=== PATIENT | female | born 1945 | race Caucasian/White ===

== ENCOUNTER 2016-06-08 17:44 | Observation (INO) ==
--- NOTE | 2016-06-08 17:57 | Emergency Department Note ---
Disposition Clinical Impression: Chest pain, Diabetes mellitus Disposition: Admitted As Inpatient Condition: Fair Referrals: NO,PCP [Primary Care Provider] - Forms: ED Satisfaction Letter Time of Disposition: 19:39 ([facility]) Chest Pain HPI - General Chief Complaint: ED Chest Pain Stated Complaint: chest pain Time Seen by Provider: 06/08/16 17:55 Source: patient, EMS Mode of arrival: EMS Limitations: no limitations Vital Signs Reviewed: Yes Nursing Notes Reviewed: Yes - History of Present Illness HPI Narrative: 71-year-old female intermittent chest pressure was given aspirin nitroglycerin with some mild relief denies though any blurred vision double vision is any nausea vomiting states that the pain was relieved with nitroglycerin denies any cough hemoptysis or sputum production she denies any vaginal discharge she has burning urgency fixation eyes anything that makes it better anything makes it worse is retired has no energy Pt complaint: chest pain Onset (ago): hour(s) (6) Duration: constant Onset: during rest Pain Location: substernal Severity: mild Severity scale (1-10): 1 Quality: tightness, other (Patient states this is not similar to when she had a prior [place] she said that was a pain this was a pressure) Pain Radiation: none Improves with: nitroglycerin (by squad) Worsens with: exertion Associated symptoms: Denies: nausea, vomiting, diaphoresis, dyspnea, sense of impending doom, syncope, palpitations, fever, cough, leg swelling Treatments prior to arrival chest pain: none - Related Data Home Medications Medication Instructions Recorded Confirmed Losartan [Cozaar] 100 mg PO DAILY 12/20/14 10/06/15 Diltiazem HCl [Diltiazem ER] 240 mg PO DAILY 05/22/15 10/06/15 Ergocalciferol (VITAMIN D2) 50,000 unit PO QWEEK 05/22/15 10/06/15 [Vitamin D2 (50,000 UNIT)] Exenatide [Byetta] 5 mcg SQ DAILY 05/22/15 10/06/15 Isosorbide MONOnitrate (24 HR) 60 mg PO DAILY 05/22/15 10/06/15 [Imdur] Nitroglycerin [Nitrostat] 0.4 mg SL PRN PRN 05/22/15 10/06/15 Warfarin [Coumadin] 3 mg PO TUSA 05/22/15 10/06/15 Ascorbic Acid [Vitamin C] 1,000 mg PO DAILY 08/18/15 10/06/15 Carvedilol [Coreg] 25 mg PO BID 08/18/15 10/06/15 Furosemide [Lasix] 40 mg PO DAILY 08/18/15 10/06/15 Gluc Alejo/Chondro Alejo A/Vit C/Mn 1 each PO DAILY 08/18/15 10/06/15 [Glucosamine 1,500 Complex Cp] Metformin HCl [Glucophage] 1,000 mg PO BID 08/18/15 10/06/15 Omeprazole Magnesium [Prilosec Otc] 20 mg PO DAILY 08/18/15 10/06/15 Simvastatin [Zocor] 10 mg PO HS 08/18/15 10/06/15 Previous Rx's Medication Instructions Recorded Aspirin 81 mg PO DAILY #30 tab.chew 12/29/14 Glimepiride [Amaryl] 1 mg PO DAILY #30 tablet 05/24/15 Lactobacillus [Culturelle] 1 each PO BID #6 cap.sprink 05/24/15 Cyanocobalamin (Vitamin B-12) 2,500 mcg SL DAILY #90 tab.subl 08/06/15 [Vitamin B-12] Folic Acid 1 mg PO DAILY #90 tablet 08/06/15 Furosemide [Lasix] 20 mg PO DAILY #30 tablet 08/06/15 Allergies Allergy/AdvReac Type Severity Reaction Status Date / Time No Known Allergies Allergy Verified 08/18/15 20:29 All systems ED: reviewed and negative except as stated. Constitutional: Denies: fever, chills, weakness Eyes: Denies: vision change ENT ED: Denies: ear pain, throat pain Cardiovascular: Reports: chest pain, palpitations Respiratory: Denies: cough, dyspnea, wheezes Gastrointestinal: Denies: abdominal pain, nausea, vomiting Genitourinary: Denies: urgency, dysuria, frequency Musculoskeletal: Denies: back pain, neck pain Integumentary: Denies: rash, abrasion Neurological: Denies: headache Psychiatric: Denies: anxiety, depression Endocrine: Denies: fatigue Hematological/Lymphatic: Denies: easy bleeding Allergic/Immunologic: Denies: facial swelling Chest Pain PMH - Past Medical History Medical history: Reports: atrial fibrillation, cardiomyopathy, CHF, coronary artery disease, diabetes, hyperlipidemia, hypertension, renal disease Surgical history: Reports: no surgical history, other Psychiatric history: Reports: no psych history SECTION HOUSEKEEPER history: Reports: no SECTION HOUSEKEEPER history - Social History Smoking Status: Never smoker Alcohol use: Reports: none Drug use: Reports: none Physical Exam - General Limitations: no limitations General appearance: alert, in no apparent distress, other (Older than stated appearance) - Head Head exam: atraumatic, normocephalic, normal inspection - Eye Eye exam: Present: normal appearance, PERRL, EOMI - ENT ENT exam: normal exam, normal oropharynx, mucous membranes moist, TM's normal bilaterally, normal external ear exam - Neck Neck exam: Present: normal inspection, full ROM, trachea midline - Chest Chest inspection: Present: normal inspection, symmetric chest wall rise - Respiratory Respiratory exam: Present: normal lung sounds bilaterally - Cardiovascular Cardiovascular exam: Present: regular rate, normal rhythm, normal heart sounds - Abdominal Exam Abdominal exam: Present: soft, Non-Tender, normal bowel sounds - Extremities Exam Extremities exam: Present: normal inspection, full ROM, normal capillary refill. Absent: pedal edema - Back Exam Back exam: Present: normal inspection, full ROM. Absent: muscle spasm - Neurological Exam Neurological exam: Present: alert, oriented X3, CN II-XII intact - Psychiatric Psychiatric exam: Present: normal affect, normal mood - Skin Skin exam: Present: warm, dry, intact, normal color Course Course Narrative: She was seen and examined patient is currently asymptomatic this time of any chest pain or pressure or discomfort as a result recommend observation and initial enzymes are negative dr mark caal Vital Signs Temperature 98.0 F 06/08/16 17:46 Pulse Rate 95 06/08/16 17:46 Respiratory Rate 18 06/08/16 17:46 Blood Pressure 140/70 06/08/16 17:46 O2 Sat by Pulse Oximetry 96 06/08/16 17:46 Temperature 98.0 F 06/08/16 17:52 Pulse Rate 99 06/08/16 18:55 Respiratory Rate 18 06/08/16 18:55 Blood Pressure 128/68 06/08/16 18:55 O2 Sat by Pulse Oximetry 97 06/08/16 18:55 Oxygen Delivery Oxygen Delivery Nasal Cannula Chest Pain - Differential Diagnosis Likely: chest pain - Medical Records Medical records reviewed: Yes I reviewed the patient's medical records. - Lab Data Lab results reviewed: Yes I reviewed the patient's lab results. Result diagrams: 06/08/16 18:10 06/08/16 18:10 Lab Results 06/08/16 06/08/16 06/08/16 Range/Units 18:10 18:10 18:10 WBC 4.3 (4.3-11.1) K/mcL RBC 3.63 L (3.82-4.97) M/mcL Hgb 10.2 L (11.5-15.4) g/dL Hct 32.2 L (35.3-44.9) % MCV 88.7 (83.0-100.0) fL MCH 28.1 (28.0-33.3) pg MCHC 31.7 (31.6-35.5) g/dL RDW 16.2 H (11.5-14.5) % Plt Count 130 L (140-400) K/mcL MPV 11.0 (9.4-12.4) fL Immature Gran % 0.5 (0-4) % Seg Neutrophils % 72.9 % Lymphocytes % 16.8 % Monocytes % 8.2 % Eosinophils % 0.9 % Basophils % 0.7 % Neutrophils # 3.1 (1.6-8.9) K/mcL Lymphocytes # 0.7 (0.6-4.6) K/mcL Monocytes # 0.4 (0.0-1.3) K/mcL Eosinophils # 0.0 (0.0-0.6) K/mcL Basophils # 0.0 (0.0-0.2) K/mcL PT 29.1 H (9.4-12.1) Seconds INR 2.6 APTT 33.9 (26.0-36.0) Seconds Sodium 142 (136-145) mEq/L Potassium 4.8 H (3.5-4.5) mEq/L Chloride 110 H (98-109) mEq/L Carbon Dioxide 22 (19-29) mEq/L BUN 31 H (7-20) mg/dL Creatinine 1.38 H (0.57-1.11) mg/dL Est GFR ( Amer) 46 L (> 60) Est GFR (Non-Af Amer) 38 L (> 60) BUN/Creatinine Ratio 22 (6-26) Glucose 170 H (70-99) mg/dL Calculated Osmolality 305 H (280-300) Calcium 9.3 (8.6-10.8) mg/dL Troponin I (0-0.03) ng/mL B-Natriuretic Peptide (0-100) pg/mL 06/08/16 06/08/16 Range/Units 18:10 18:10 WBC (4.3-11.1) K/mcL RBC (3.82-4.97) M/mcL Hgb (11.5-15.4) g/dL Hct (35.3-44.9) % MCV (83.0-100.0) fL MCH (28.0-33.3) pg MCHC (31.6-35.5) g/dL RDW (11.5-14.5) % Plt Count (140-400) K/mcL MPV (9.4-12.4) fL Immature Gran % (0-4) % Seg Neutrophils % % Lymphocytes % % Monocytes % % Eosinophils % % Basophils % % Neutrophils # (1.6-8.9) K/mcL Lymphocytes # (0.6-4.6) K/mcL Monocytes # (0.0-1.3) K/mcL Eosinophils # (0.0-0.6) K/mcL Basophils # (0.0-0.2) K/mcL PT (9.4-12.1) Seconds INR APTT (26.0-36.0) Seconds Sodium (136-145) mEq/L Potassium (3.5-4.5) mEq/L Chloride (98-109) mEq/L Carbon Dioxide (19-29) mEq/L BUN (7-20) mg/dL Creatinine (0.57-1.11) mg/dL Est GFR ( Amer) (> 60) Est GFR (Non-Af Amer) (> 60) BUN/Creatinine Ratio (6-26) Glucose (70-99) mg/dL Calculated Osmolality (280-300) Calcium (8.6-10.8) mg/dL Troponin I 0.02 (0-0.03) ng/mL B-Natriuretic Peptide 628 H (0-100) pg/mL - Radiology Data Radiology results reviewed: Yes I reviewed the patient's radiology results. ITS Impressions Chest/Abdomen X-ray 06/08/16 17:56 IMPRESSION: No acute abnormality in the chest. No evidence of bowel obstruction or free intraperitoneal air. D/ / 06/08/2016 18:55:37 Tone Castañeda MD / shira Interpreting Provider: Tone Castañeda MD - EKG Data EKG attestation: Yes I reviewed and interpreted this EKG. EKG results narrative: Atrial fibrillation with left anterior fascicular block rate 91 QRS 119 QT 372 axis -56 Heart Score - Score History: Moderately Suspicious EKG: Non Specific repolarisation Disturbance Age: Greater than 65 Risk Factors: 1-2 risk factors Troponin: Less than normal limit HEART Score Total: 5 Critical Care Time Critical Care Time: No
[2016-06-08 18:15] LABS: Basophils % 0.7 %; Eosinophils % 0.9 %; Hematocrit 32.2 % (35.3-44.9); Hemoglobin 10.2 g/dL (11.5-15.4); Immature Granulocytes % 0.5 % (0-4); Lymphocytes # 0.7 K/mcL (0.6-4.6); Lymphocytes % 16.8 %; Mean Corpuscular HGB Conc 31.7 g/dL (31.6-35.5); Mean Corpuscular Hemoglobin 28.1 pg (28.0-33.3); Mean Corpuscular Volume 88.7 fL (83.0-100.0); Monocytes # 0.4 K/mcL (0.0-1.3); Monocytes % 8.2 %; Neutrophils # 3.1 K/mcL (1.6-8.9); Platelet Count 130 K/mcL (140-400); Red Blood Count 3.63 M/mcL (3.82-4.97); Red Cell Distribution Width 16.2 % (11.5-14.5); Segmented Neutrophils % 72.9 %
[2016-06-08 18:22] LABS: INR 2.6; Prothrombin Time 29.1 Seconds (9.4-12.1)
[2016-06-08 18:25] LABS: Activated Partial Thrombo Time 33.9 Seconds (26.0-36.0)
[2016-06-08 18:32] LABS: Calcium 9.3 mg/dL (8.6-10.8); Potassium 4.8 mEq/L (3.5-4.5)
[2016-06-08] MEDS ORDERED: D5% in Water 1,000 ML IV PRN (20:11)
[2016-06-08] MEDS ORDERED: Nitroglycerin 0.4 MG TAB.SUBL SL SCH (20:11)
[2016-06-08] MEDS ORDERED: Dextrose Gel 15 GM PO PRN ×2 (20:11)
[2016-06-08] MEDS ORDERED: Ondansetron 4 MG/2 ML VIAL IVP PRN (20:11)
[2016-06-08] MEDS ORDERED: Naloxone 0.4 MG/ML INJ IVP PRN (20:11)
[2016-06-08] MEDS ORDERED: *HR* Dextrose 50 % in Water (Syg) 50 ML SYRINGE IVP PRN (20:11)
[2016-06-08] MEDS ORDERED: *HR* Metformin 500 MG TABLET PO SCH (21:00)
[2016-06-08] MEDS: Lactobacillus 1 EACH CAP.SPRINK PO SCH (22:54)
[2016-06-08] MEDS ORDERED: Nitroglycerin 0.4 MG TAB.SUBL SL PRN (22:57)
[2016-06-08] MEDS ORDERED: *HR* Warfarin 1 MG TABLET PO ONE (23:42)
[2016-06-08] MEDS ORDERED: Furosemide 40 MG TABLET PO PRN (23:49)
[2016-06-08] MEDS ORDERED: Furosemide 20 MG TABLET PO PRN (23:49)
[2016-06-09] MEDS ORDERED: Famotidine 20 MG/2 ML VIAL IVP SCH (06:00)
[2016-06-09 06:31] LABS: Basophils % 0.6 %; Eosinophils # 0.1 K/mcL (0.0-0.6); Hematocrit 30.9 % (35.3-44.9); Hemoglobin 9.6 g/dL (11.5-15.4); Immature Granulocytes % 0.3 % (0-4); Lymphocytes % 26.9 %; Mean Corpuscular HGB Conc 31.1 g/dL (31.6-35.5); Mean Corpuscular Hemoglobin 27.9 pg (28.0-33.3); Mean Corpuscular Volume 89.8 fL (83.0-100.0); Mean Platelet Volume 10.5 fL (9.4-12.4); Monocytes # 0.4 K/mcL (0.0-1.3); Monocytes % 11.6 %; Neutrophils # 2.1 K/mcL (1.6-8.9); Platelet Count 126 K/mcL (140-400); Red Blood Count 3.44 M/mcL (3.82-4.97); Red Cell Distribution Width 16.4 % (11.5-14.5); Segmented Neutrophils % 57.6 %
[2016-06-09 06:49] LABS: INR 2.7; Prothrombin Time 30.5 Seconds (9.4-12.1)
[2016-06-09 06:52] LABS: Activated Partial Thrombo Time 33.8 Seconds (26.0-36.0)
[2016-06-09 07:14] LABS: Potassium 4.7 mEq/L (3.5-4.5)
[2016-06-09] MEDS ORDERED: *HR* Metformin 500 MG TABLET PO SCH ×2 (08:00)
[2016-06-09] MEDS ORDERED: Cholecalciferol (D-3) 1,000 UNIT TABLET PO SCH (09:00)
[2016-06-09] MEDS ORDERED: Ascorbic Acid 500 MG TABLET PO SCH ×2 (09:00→15:59)
[2016-06-09] MEDS ORDERED: Isosorbide MONOnitrate (24 HR) 60 MG TAB.ER.24H PO SCH ×2 (09:00→16:00)
[2016-06-09] MEDS ORDERED: Furosemide 20 MG TABLET PO SCH (09:00)
[2016-06-09] MEDS ORDERED: Furosemide 40 MG TABLET PO SCH (09:00)
[2016-06-09] MEDS ORDERED: Cyanocobalamin (B-12) 1,000 MCG TABLET PO SCH ×2 (09:00→16:00)
[2016-06-09] MEDS: Insulin LISPRO 300 UNITS/3 ML VIAL SQ SCH ×3 (09:52→17:34)
[2016-06-09] MEDS: Lactobacillus 1 EACH CAP.SPRINK PO SCH ×2 (09:59→21:05)
[2016-06-09] MEDS: Diltiazem CD (24hr) 240 MG CAPSULE PO SCH (09:59)
[2016-06-09] MEDS: Folic Acid 1 MG TABLET PO SCH (09:59)
[2016-06-09] MEDS: Aspirin 81 MG TAB.CHEW PO SCH (09:59)
[2016-06-09] MEDS: *HR* Glimepiride 2 MG TABLET PO SCH (10:00)
[2016-06-09] MEDS: CHONDRO SU A PO SCH (10:01)
[2016-06-09] MEDS: (Exenatide [Byetta] 5 MCG) SQ SCH (10:01)
[2016-06-09] MEDS: GLUC SU PO SCH (10:01)
[2016-06-09] MEDS: [UNRECOGNIZED DRUG - OTHER] PO SCH (10:01)
[2016-06-09] MEDS: VIT C PO SCH (10:01)
--- NOTE | 2016-06-09 15:42 | Internal Med History&Physical ---
Date of Encounter: 06/09/16 Time of Encounter: 15:15 Assessment and Plan (1) Chest pain Current visit: Yes Status: Acute Repeat cardiac enzymes have been ordered. I will increase her Imdur dose Qualifiers: Chest pain type: unspecified Qualified Code(s): R07.9 - Chest pain, unspecified (2) Diabetes mellitus Current visit: Yes Status: Chronic We will check hemoglobin A1c in a.m. Continue Amaryl but hold metformin because of impaired renal function. We will do Accu-Cheks with SSI. Qualifiers: Diabetes mellitus type: type 2 Diabetes mellitus complication status: with kidney complications Diabetes mellitus complication detail: with chronic kidney disease Diabetes mellitus correction insulin use: with predatory animal exterminator use Chronic kidney disease stage: stage 3 (moderate) Qualified Code(s): E11.22 - Type 2 diabetes mellitus with diabetic chronic kidney disease; N18.3 - Chronic kidney disease, stage 3 (moderate); Z79.4 - bed bug exterminator (current) use of insulin (3) CHF (congestive heart failure) Current visit: No Status: Acute Continue Coreg, Lasix, Cozaar and Imdur Qualifiers: Congestive heart failure type: systolic Congestive heart failure chronicity : chronic Qualified Code(s): I50.22 - Chronic systolic (congestive) heart failure (4) CKD (chronic kidney disease), stage III Current visit: No Status: Chronic Will monitor renal indices. (5) Hypertension Current visit: No Status: Chronic Continue Coreg, Cozaar, and Lasix Qualifiers: Hypertension type: essential hypertension Qualified Code(s): I10 - Essential (primary) hypertension Internal Medicine - H&P: HPI Chief complaint: Chest pressure Admitted From: Home Plans for Post Hospital Care: Home History of present illness: Ms. Beebe is a 71 year old female who came to the emergency room stating she had worsening discomfort in her chest that she describes as a "pressure sensation". She states it began while at leisure earlier the day of admission. She has had increasing dyspnea on exertion the past month. She did not take any Nitrostat or other additional medication at home. She called the squad and was brought to emergency room. She was given aspirin 81 mg and Nitrostat by [facility] personnel. She was evaluated in emergency room and admitted to [facility] floor for ongoing care needs. She states she feels slightly improved at the present time but still has some pressure sensation in her chest. Her cardiovascular history is significant for hypertension. She has known ASHD status post [place] 1998. She had a left heart catheter 2012 which showed completely occluded RCA. She had an echo December 2014 which showed LVEF of 30-35% with hypokinesis or akinesis of all segments. There was elevated estimated RVSP at 56 mmHg. She has chronic atrial fibrillation. She denies DVT or pulmonary embolus. She denies missing any doses of her cardiac medications. Past Med Surg Social Fam HX - Past Medical History Medical history: atrial fibrillation, cardiomyopathy, CHF, coronary artery disease, diabetes, hyperlipidemia, hypertension, myocardial infarction, renal disease Psychiatric history: depression - Past Surgical History Surgical History: no surgical history, other - Social History Smoking Status: Former smoker Smokeless Tobacco Status: No Alcohol use: rarely Drug use: none - Family History Father Living Status: Hx Family Cancer: Yes (lung) Internal Medicine - H&P: Meds Losartan [Cozaar] 100 mg PO DAILY 12/20/14 [History] Diltiazem HCl [Diltiazem ER] 240 mg PO DAILY 05/22/15 [History] Ergocalciferol (VITAMIN D2) [Vitamin D2 (50,000 UNIT)] 50,000 unit PO QWEEK [History] Isosorbide MONOnitrate (24 HR) [Imdur] 60 mg PO DAILY 05/22/15 [History] Nitroglycerin [Nitrostat] 0.4 mg SL PRN PRN 05/22/15 [History] Warfarin [Coumadin] 3 mg PO DAILY 05/22/15 [History] Lactobacillus [Culturelle] 1 each PO BID #6 cap.sprink 05/24/15 [Rx] Cyanocobalamin (Vitamin B-12) [Vitamin B-12] 2,500 mcg SL DAILY #90 tab.subl [Rx] Folic Acid 1 mg PO DAILY #90 tablet 08/06/15 [Rx] Ascorbic Acid [Vitamin C] 1,000 mg PO DAILY 08/18/15 [History] Carvedilol [Coreg] 25 mg PO BID 08/18/15 [History] Furosemide [Lasix] 40 mg PO PRN PRN 08/18/15 [History] Gluc Alejo/Chondro Alejo A/Vit C/Mn [Glucosamine 1,500 Complex Cp] 1 each PO DAILY 04/22 [History] Metformin HCl [Glucophage] 1,000 mg PO BID 08/18/15 [History] Simvastatin [Zocor] 10 mg PO HS 08/18/15 [History] Furosemide [Lasix] 20 mg PO DAILY PRN MDD 40 MG 06/08/16 [History] Allergies No Known Allergies Allergy (Verified 08/18/15 20:29) All Systems PM: A 10-system review of systems was performed and is negative for pertinent findings except as documented above in the HPI. Review of systems: Gen.: Her weight is increased from 77.337 kg at a May 2015 hospitalization to 87.8 kg now.. Cardiovascular: As per history of present illness Respiratory: She smoked from age [age] up to one and 1 half packs per day. She does not wear home oxygen. She states she took a nocturnal oxygen test in 2014 that indicated she did not require home oxygen. : She has CKD stage III and follows with her entry level at [facility]. She denies other kidney or bladder disorders GI: she denies disorders of her liver gallbladder or exocrine pancreas Neurologic: she denies large distribution strokes or seizures Endocrine: She was diagnosed with DM 2 in 1998. She has hyperlipidemia but no known thyroid disease Hematology/oncology: She has anemia but denies other blood disorders or internal malignancies. Anemia workup during the May 2015 hospitalization showed no factor deficiency. Psychiatric: She has no known anxiety depression or other mental health issues Musk skeletal: She has had elevated uric acid but has not been diagnosed with gout in the past. She does not take medication to lower her uric acid level. She has minimal DJD. - Constitutional Vitals: Temp Pulse Resp BP Pulse Ox 98.2 F 64 18 132/64 97 06/09/16 14:32 06/09/16 14:32 06/09/16 14:32 06/09/16 14:32 06/09/16 14:32 Exam: Gen.: She is well-developed obese female lying in bed who appears in minimal distress at present time. HEENT: Head is atraumatic and normocephalic. Eyes: EOMI. There is no scleral icterus. Mouth: Mucosa is moist. Neck: Supple and nontender. There is no thyromegaly or adenopathy noted. Heart: Regular without murmurs gallops or ectopics. Lungs: No wheezes or crackles are heard. Abdomen: Soft and nontender. No masses or guarding noted. Extremities: There is no cyanosis edema or clubbing noted. Dorsalis pedis and posterior tibial pulses are 1-2 over 2 bilaterally. Neurologic: Mental status: She is talkative and a good historian. Cranial nerves: Smile is symmetric. Forehead wrinkles bilaterally. Tongue protrudes midline. EOMI. Motor: There is no pronator drift. Cerebellar: Finger to nose is intact bilaterally. Skin: Warm and dry. Internal Med - H&P Results - Labs CBC & Chem 7: 06/09/16 05:49 06/09/16 05:49 Labs: Short CBC 06/09/16 Range/Units 05:49 WBC 3.6 L (4.3-11.1) K/mcL Hgb 9.6 L (11.5-15.4) g/dL Hct 30.9 L (35.3-44.9) % Plt Count 126 L (140-400) K/mcL Neutrophils # 2.1 (1.6-8.9) K/mcL BMP 06/09/16 05:49 Sodium 143 Potassium 4.7 H Chloride 110 H Carbon Dioxide 23 BUN 29 H Creatinine 1.34 H Glucose 107 H Calcium 9.0 Cardiac Enzymes 06/09/16 06/09/16 Range/Units 00:45 05:49 Troponin I 0.01 0.02 (0-0.03) ng/mL
[2016-06-09] MEDS ORDERED: *HR* Warfarin 3 MG TABLET PO SCH (18:00)
[2016-06-10] MEDS: Insulin LISPRO 300 UNITS/3 ML VIAL SQ SCH ×2 (07:49→11:54)
[2016-06-10] MEDS: Folic Acid 1 MG TABLET PO SCH (07:59)
[2016-06-10] MEDS: *HR* Glimepiride 2 MG TABLET PO SCH (08:00)
[2016-06-10] MEDS: Aspirin 81 MG TAB.CHEW PO SCH (08:03)
[2016-06-10] MEDS: Lactobacillus 1 EACH CAP.SPRINK PO SCH (08:03)
[2016-06-10] MEDS: (Exenatide [Byetta] 5 MCG) SQ SCH (08:10)
[2016-06-10] MEDS: Diltiazem CD (24hr) 240 MG CAPSULE PO SCH (09:24)
[2016-06-10 11:06] VITALS: BP 113/54
[2016-06-10] MEDS: VIT C PO SCH (11:54)
[2016-06-10] MEDS: CHONDRO SU A PO SCH (11:54)
[2016-06-10] MEDS: [UNRECOGNIZED DRUG - OTHER] PO SCH (11:54)
[2016-06-10] MEDS: GLUC SU PO SCH (11:54)
--- NOTE | 2016-06-10 12:33 | Discharge Summary ---
Date of Encounter: 06/10/16 Time of Encounter: 12:15 - Discharge Diagnosis (1) Chest pain Priority: Primary Status: Acute Qualifiers: Chest pain type: unspecified Qualified Code(s): R07.9 - Chest pain, unspecified (2) Diabetes mellitus Priority: Secondary Status: Chronic Qualifiers: Diabetes mellitus type: type 2 Diabetes mellitus complication status: with kidney complications Diabetes mellitus complication detail: with chronic kidney disease Diabetes mellitus termite technician insulin use: with termite technician use Chronic kidney disease stage: stage 3 (moderate) Qualified Code(s): E11.22 - Type 2 diabetes mellitus with diabetic chronic kidney disease; N18.3 - Chronic kidney disease, stage 3 (moderate); Z79.4 - CHCF (current) use of insulin (3) CHF (congestive heart failure) Priority: Secondary Status: Chronic Qualifiers: Congestive heart failure type: systolic Congestive heart failure chronicity : chronic Qualified Code(s): I50.22 - Chronic systolic (congestive) heart failure (4) CKD (chronic kidney disease), stage III Priority: Secondary Status: Chronic (5) Hypertension Priority: Secondary Status: Chronic Qualifiers: Hypertension type: essential hypertension Qualified Code(s): I10 - Essential (primary) hypertension - Discharge Medications Prescriptions: Allopurinol [Zyloprim 100 MG] 200 mg PO DAILY #60 tablet Glimepiride [Amaryl] 1 mg PO DAILY #30 tablet Isosorbide MONOnitrate (24 HR) [Imdur] 120 mg PO DAILY #60 tab.er.24h Nitroglycerin [Nitrostat] 0.4 mg SL PRN PRN #1 vial PRN Reason: Chest Pain Home Medications: Losartan [Cozaar] 100 mg PO DAILY 12/20/14 [History] Diltiazem HCl [Diltiazem ER] 240 mg PO DAILY 05/22/15 [History] Ergocalciferol (VITAMIN D2) [Vitamin D2 (50,000 UNIT)] 50,000 unit PO QWEEK [History] Warfarin [Coumadin] 3 mg PO DAILY 05/22/15 [History] Folic Acid 1 mg PO DAILY #90 tablet 08/06/15 [Rx] Carvedilol [Coreg] 25 mg PO BID 08/18/15 [History] Gluc Alejo/Chondro Alejo A/Vit C/Mn [Glucosamine 1,500 Complex Cp] 1 each PO DAILY 04/22 [History] Simvastatin [Zocor] 10 mg PO HS 08/18/15 [History] Allopurinol [Zyloprim 100 MG] 200 mg PO DAILY #60 tablet 06/10/16 [Rx] Ascorbic Acid [Vitamin C] 500 mg PO DAILY tablet 06/10/16 [Rx] Cyanocobalamin (B-12) [Vitamin B12] 500 mcg PO DAILY tablet 06/10/16 [Rx] Furosemide [Lasix] 20 mg PO Q48H 365 Days MDD 40 MG 06/10/16 [Rx] Glimepiride [Amaryl] 1 mg PO DAILY #30 tablet 06/10/16 [Rx] Isosorbide MONOnitrate (24 HR) [Imdur] 120 mg PO DAILY #60 tab.er.24h 06/10/16 [ Rx] Nitroglycerin [Nitrostat] 0.4 mg SL PRN PRN #1 vial 06/10/16 [Rx] Allergies/Adverse Reactions: Allergies No Known Allergies Allergy (Verified 08/18/15 20:29) Date of admission: 06/08/16 19:55 Primary care physician: PCP NO Consults: 06/10/16 09:27 Consult to Tongue And Quarter Stitcher [CONS] Routine Reason for SW Consult: D/C planning - Patient Status Disposition: Home Health Service Condition: Fair Overall status at discharge: patient is progressing back to baseline - Discharge Instructions Follow Up With: NIK,PCP [Primary Care Provider] - 1 week - Diet and Activity Activity: resume usual activities as tolerated Diet: advance to your usual diet Hospital course: Ms. Beebe is a 71 year old female who came to the emergency room stating she had worsening discomfort in her chest that she describes as a "pressure sensation". She states it began while at leisure earlier the day of admission. She has had increasing dyspnea on exertion the past month. She did not take any Nitrostat or other additional medication at home. [facility]. She was given aspirin 81 mg and Nitrostat by [facility] personnel. She was evaluated in emergency room and admitted to [facility] floor for ongoing care needs. Initial orders were written by the emergency room physician. I saw her on June 09 and performed history and physical. Repeat cardiac enzymes showed no evidence of myocardial damage. I increased the Imdur dose and she will remain on 120 mg daily at discharge. Her chest discomfort had significantly lessened when I saw her in follow-up on June 10. Metformin was held because of impaired renal function. Her Amaryl was continued with acceptable Accu-Cheks. Uric acid level returned significantly elevated at 8.9. She will be started on allopurinol. Her Lasix dose will be changed to 20 mg q48h. Her primary care provider can adjust the dose as needed. She declined room air oximetry testing prior to discharge stating she did not want home oxygen. On June 10 she wished to be discharged home. She requested home health services to see if she could benefit from home physical therapy. This will be ordered. She will follow up at [facility] with a primary care provider within one week. - Time Spent with Patient Total time spent providing and/or coordinating discharge services: - Constitutional Vitals: Temp Pulse Resp BP Pulse Ox 97.5 F L 69 16 113/54 90 L 06/10/16 10:59 06/10/16 10:59 06/10/16 10:59 06/10/16 10:59 06/10/16 11:43
--- NOTE | 2016-06-10 12:39 | Physician Discharge Referral ---
Home Health/Hosp Referral Info Transfer to: Home Health Attending Provider: Sarthak Provider in Charge Post Discharge: PCP - Diagnosis (1) Chest pain Priority: Primary Status: Acute (2) Diabetes mellitus Priority: Secondary Status: Chronic (3) CHF (congestive heart failure) Priority: Secondary Status: Chronic (4) CKD (chronic kidney disease), stage III Priority: Secondary Status: Chronic (5) Hypertension Priority: Secondary Status: Chronic - Respiratory Orders Smoking Cessation: Smoking cessation has been advised. For more information, call the [place] Tobacco Quit Line at 4-586-VGAO-NOW. - Diet/Nutrition Diet/Nutrition Orders: No Concentrated Sweets - Activity Activity Orders: Ambulate - Services Needed Following services are medically necessary services: Nursing, Home Health Aide, Physical Therapy, Occupational Therapy - Transfer Medications Prescriptions: Allopurinol [Zyloprim 100 MG] 200 mg PO DAILY #60 tablet Glimepiride [Amaryl] 1 mg PO DAILY #30 tablet Isosorbide MONOnitrate (24 HR) [Imdur] 120 mg PO DAILY #60 tab.er.24h Nitroglycerin [Nitrostat] 0.4 mg SL PRN PRN #1 vial PRN Reason: Chest Pain Home Medications: Losartan [Cozaar] 100 mg PO DAILY 12/20/14 [History] Diltiazem HCl [Diltiazem ER] 240 mg PO DAILY 05/22/15 [History] Ergocalciferol (VITAMIN D2) [Vitamin D2 (50,000 UNIT)] 50,000 unit PO QWEEK [History] Warfarin [Coumadin] 3 mg PO DAILY 05/22/15 [History] Folic Acid 1 mg PO DAILY #90 tablet 08/06/15 [Rx] Carvedilol [Coreg] 25 mg PO BID 08/18/15 [History] Gluc Alejo/Chondro Alejo A/Vit C/Mn [Glucosamine 1,500 Complex Cp] 1 each PO DAILY 04/22 [History] Simvastatin [Zocor] 10 mg PO HS 08/18/15 [History] Allopurinol [Zyloprim 100 MG] 200 mg PO DAILY #60 tablet 06/10/16 [Rx] Ascorbic Acid [Vitamin C] 500 mg PO DAILY tablet 06/10/16 [Rx] Cyanocobalamin (B-12) [Vitamin B12] 500 mcg PO DAILY tablet 06/10/16 [Rx] Furosemide [Lasix] 20 mg PO Q48H 365 Days MDD 40 MG 06/10/16 [Rx] Glimepiride [Amaryl] 1 mg PO DAILY #30 tablet 06/10/16 [Rx] Isosorbide MONOnitrate (24 HR) [Imdur] 120 mg PO DAILY #60 tab.er.24h 06/10/16 [ Rx] Nitroglycerin [Nitrostat] 0.4 mg SL PRN PRN #1 vial 06/10/16 [Rx] Allergies/Adverse Reactions: Allergies No Known Allergies Allergy (Verified 08/18/15 20:29) Certification: Further, I certify that my clinical findings support that this patient is homebound (i.e. absences from home require considerable and taxing effort and are for medical reasons or latter day services or infrequently or short duration when for other reasons) because: Homebound Reason: Leaving home requires considerable and taxing effort due to condition (Deconditioning, hyperuricemia, chest pain) Attestation: My signature below is to certify that this patient is under my care and that I, or nurse practitioner, or a physician's housing assistant working with me, has a face-to -face encounter with this patient.
[2016-06-10] MEDS ORDERED: FLU VACC QS2016-17 36MOS UP/PF 0.5 ML SYRINGE IM ONE (13:11)
[2016-06-10] MEDS ORDERED: Cholecalciferol (D-3) 1,000 UNIT TABLET PO SCH (14:15)
--- NOTE | 2016-06-10 15:29 | Electrocardiograph Report ---
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
== END 2016-06-10 15:17 | disposition home health service (06) ==
LOC: INPPIK 17:44 → EMEROOPIK 17:44 → INPPIK 20:21
PROVIDERS: ADMIT Internal Medicine; ATTEND Internal Medicine

== ENCOUNTER 2016-08-07 18:49 | Observation (INO) ==
[2016-08-07] MEDS ORDERED: Ipratropium/Albuterol Neb 3 ML IH ONE (18:56)
--- NOTE | 2016-08-07 19:21 | Emergency Department Note ---
Disposition Clinical Impression: Bronchitis, Hyperkalemia Disposition: Admitted As Inpatient Condition: Good SOB HPI - General Chief Complaint: ED Shortness of Breath/Dyspnea Stated Complaint: jessika Source: patient, EMS Mode of arrival: EMS Limitations: no limitations Nursing Notes Reviewed: Yes Vital Signs Reviewed: Yes - History of Present Illness Patient presents to the ED via EMS complaining of progressively worsening shortness of breath, dry cough, chest congestion, generalized weakness and subjective fever and chills. She has had nausea but no vomiting. She has chronic lower extremity edema that she thinks may be slightly worse. She has had some intermittent diarrhea. She has had nausea but no vomiting. No sore throat, rhinorrhea or nasal congestion. She was seen here by me on 08/01 for similar upper respiratory symptoms. She was given nebulizer treatments and steroids. Chest x-ray did not show any pneumonia at that time and laboratory studies did not show any leukocytosis or other acute abnormalities. She was diagnosed with bronchitis and discharged with an inhaler, cough medication steroids. States she has completed all of her steroids. Reports persistent cough despite using cough syrup. States she has been using the inhaler as directed with two uses today. States she only took half a dose of her Lasix for 4 days and none in the past 2 days because she is not feeling well and left to get up from the bathroom frequently. She has a history of COPD, CAD, CHF and A. fib. She is on Coumadin. - Related Data Home Medications Medication Instructions Recorded Confirmed Losartan [Cozaar] 100 mg PO HS 12/20/14 08/07/16 Ergocalciferol (VITAMIN D2) 50,000 unit PO QWEEK 05/22/15 08/07/16 [Vitamin D2 (50,000 UNIT)] Warfarin [Coumadin] 3.5 mg PO DAILY 05/22/15 08/07/16 Carvedilol [Coreg] 25 mg PO BID 08/18/15 08/07/16 Simvastatin [Zocor] 10 mg PO HS 08/18/15 08/07/16 HydrALAZINE 25 mg PO Q8HR 08/02/16 08/07/16 Furosemide [Lasix] 40 mg PO BID MDD 40 MG 08/07/16 08/07/16 Previous Rx's Medication Instructions Recorded Folic Acid 1 mg PO DAILY #90 tablet 08/06/15 Allopurinol [Zyloprim 100 MG] 200 mg PO DAILY #60 tablet 06/10/16 Cyanocobalamin (B-12) [Vitamin B12] 500 mcg PO DAILY tablet 06/10/16 Glimepiride [Amaryl] 1 mg PO DAILY #30 tablet 06/10/16 Isosorbide MONOnitrate (24 HR) 120 mg PO DAILY #60 tab.er.24h 06/10/16 [Imdur] Nitroglycerin [Nitrostat] 0.4 mg SL PRN PRN #1 vial 06/10/16 Allergies Allergy/AdvReac Type Severity Reaction Status Date / Time No Known Allergies Allergy Verified 08/07/16 18:53 Constitutional: Reports: fever, chills. Denies: weakness, weight change Eyes: Denies: eye pain, eye discharge, vision change ENT ED: Denies: ear pain, throat pain, dental pain, hearing loss, epistaxis, congestion, dysphagia Cardiovascular: Denies: chest pain, palpitations, dyspnea on exertion, edema, syncope Respiratory: Reports: cough, dyspnea. Denies: wheezes, hemoptysis, stridor Gastrointestinal: Reports: nausea, diarrhea. Denies: abdominal pain, vomiting, constipation, hematemesis, melena, hematochezia Genitourinary: Denies: dysuria, frequency, hematuria, discharge Musculoskeletal: Denies: back pain, neck pain, arthralgia, myalgia Integumentary: Denies: rash, abrasion, lesions Neurological: Denies: headache, weakness, numbness, paresthesias, confusion, abnormal gait, vertigo Psychiatric: Denies: anxiety, depression, suicidal thoughts, homicidal thoughts , auditory hallucinations, visual hallucinations Endocrine: Denies: fatigue Hematological/Lymphatic: Denies: easy bleeding, easy bruising Allergic/Immunologic: Denies: facial swelling, urticaria Past Medical History - Past Medical History Medical history: Reports: atrial fibrillation, cardiomyopathy, CHF, coronary artery disease, diabetes, hyperlipidemia, hypertension, myocardial infarction, renal disease Surgical history: Reports: no surgical history, other Psychiatric history: Reports: depression EVENT MARKETING INTERN history: Reports: no EVENT MARKETING INTERN history - Social History Smoking Status: Former smoker Smokeless Tobacco Status: No Alcohol use: Reports: rarely Drug use: Reports: none Physical Exam - General Limitations: no limitations General appearance: alert, in no apparent distress - Head Head exam: atraumatic, normocephalic, normal inspection - Eye Eye exam: Present: normal appearance, PERRL, EOMI - ENT ENT exam: normal exam, normal oropharynx, mucous membranes moist - Neck Neck exam: Present: normal inspection, full ROM, trachea midline - Chest Chest inspection: Present: normal inspection, symmetric chest wall rise - Respiratory Respiratory exam: Present: wheezes. Absent: respiratory distress - Expanded Respiratory Exam Location: wheezes: Left, Right, Upper, Lower - Cardiovascular Cardiovascular exam: Present: regular rate, normal rhythm, normal heart sounds - Abdominal Exam Abdominal exam: Present: soft, Non-Tender. Absent: tenderness, distention, guarding, rebound, rigidity - Extremities Exam Extremities exam: Present: normal inspection, full ROM, pedal edema (2+ bilaterally). Absent: tenderness Course Course Narrative: Patient presents to the ED with progressively worsening shortness of breath, cough, fever and chills and generalized weakness. She was recently diagnosed with bronchitis. She now has more generalized systemic symptoms concerning for possible further interval development of pneumonia. Low suspicion for cardiac pathology at this time. Will check a flu swab as well as repeat labs and chest x-ray. EKG shows no ischemic changes. Will give breathing treatment and steroids. - Reevaluation(s) Reevaluation #1: Chest x-ray shows no pneumonia. Laboratory studies again demonstrates no leukocytosis. The swab was negative. Troponin is negative. BNP is slightly elevated at 391. Patient is hyperkalemic at 5.4. Confirmed no hemolysis of the sample with lab. Will treat her hyperkalemia. Given worsening symptoms although no indication of pneumonia and new hyperkalemia patient will be admitted for continued treatment. Reevaluation #2: I spoke to the hospitalist on-call, Dr. De León, who has agreed to accept the patient. Time: 22:02 Vital Signs Temperature 97.2 F L 08/07/16 18:50 Pulse Rate 86 08/07/16 18:50 Respiratory Rate 24 08/07/16 18:50 Blood Pressure 134/69 08/07/16 18:50 O2 Sat by Pulse Oximetry 92 08/07/16 18:50 Temperature 97.8 F 08/07/16 23:11 Pulse Rate 98 08/07/16 23:11 Respiratory Rate 22 08/08/16 00:29 Blood Pressure 134/78 08/07/16 23:11 O2 Sat by Pulse Oximetry 97 08/08/16 00:29 Oxygen Delivery Oxygen Delivery Nasal Cannula Shortness of Breath/Dyspnea - Differential Diagnosis Likely: acute exacerbation of chronic obstructive airways disease, pneumonia - Medical Records Medical records reviewed: Yes I reviewed the patient's medical records. - Lab Data Lab results reviewed: Yes I reviewed the patient's lab results. Result diagrams: 08/07/16 19:54 08/07/16 19:54 Lab Results 08/07/16 08/07/16 08/07/16 Range/Units 19:54 19:54 19:54 WBC 4.3 (4.3-11.1) K/mcL RBC 3.99 (3.82-4.97) M/mcL Hgb 10.5 L (11.5-15.4) g/dL Hct 33.6 L (35.3-44.9) % MCV 84.2 (83.0-100.0) fL MCH 26.3 L (28.0-33.3) pg MCHC 31.3 L (31.6-35.5) g/dL RDW 18.5 H (11.5-14.5) % Plt Count 151 (140-400) K/mcL MPV 10.8 (9.4-12.4) fL Immature Gran % 0.5 (0-4) % Seg Neutrophils % 83.5 % Lymphocytes % 7.9 % Monocytes % 7.9 % Eosinophils % 0.0 % Basophils % 0.2 % Neutrophils # 3.6 (1.6-8.9) K/mcL Lymphocytes # 0.3 L (0.6-4.6) K/mcL Monocytes # 0.3 (0.0-1.3) K/mcL Eosinophils # 0.0 (0.0-0.6) K/mcL Basophils # 0.0 (0.0-0.2) K/mcL PT 46.5 H* (9.4-12.1) Seconds INR 4.1 Sodium 137 (136-145) mEq/L Potassium 5.4 H (3.5-4.5) mEq/L Chloride 103 (98-109) mEq/L Carbon Dioxide 22 (19-29) mEq/L BUN 49 H (7-20) mg/dL Creatinine 1.60 H (0.57-1.11) mg/dL Est GFR ( Amer) 38 L (> 60) Est GFR (Non-Af Amer) 32 L (> 60) BUN/Creatinine Ratio 31 H (6-26) Glucose 311 H (70-99) mg/dL Calculated Osmolality 309 H (280-300) Calcium 9.4 (8.6-10.8) mg/dL Troponin I (0-0.03) ng/mL B-Natriuretic Peptide (0-100) pg/mL 08/07/16 08/07/16 Range/Units 19:54 19:54 WBC (4.3-11.1) K/mcL RBC (3.82-4.97) M/mcL Hgb (11.5-15.4) g/dL Hct (35.3-44.9) % MCV (83.0-100.0) fL MCH (28.0-33.3) pg MCHC (31.6-35.5) g/dL RDW (11.5-14.5) % Plt Count (140-400) K/mcL MPV (9.4-12.4) fL Immature Gran % (0-4) % Seg Neutrophils % % Lymphocytes % % Monocytes % % Eosinophils % % Basophils % % Neutrophils # (1.6-8.9) K/mcL Lymphocytes # (0.6-4.6) K/mcL Monocytes # (0.0-1.3) K/mcL Eosinophils # (0.0-0.6) K/mcL Basophils # (0.0-0.2) K/mcL PT (9.4-12.1) Seconds INR Sodium (136-145) mEq/L Potassium (3.5-4.5) mEq/L Chloride (98-109) mEq/L Carbon Dioxide (19-29) mEq/L BUN (7-20) mg/dL Creatinine (0.57-1.11) mg/dL Est GFR ( Amer) (> 60) Est GFR (Non-Af Amer) (> 60) BUN/Creatinine Ratio (6-26) Glucose (70-99) mg/dL Calculated Osmolality (280-300) Calcium (8.6-10.8) mg/dL Troponin I 0.02 (0-0.03) ng/mL B-Natriuretic Peptide 391 H (0-100) pg/mL - Radiology Data Radiology results reviewed: Yes I reviewed the patient's radiology results. ITS Impressions Chest X-Ray 08/07/16 19:37 IMPRESSION: 1. No acute cardiopulmonary process. 2. Stable cardiomegaly. D/ / Wayne Mccoy MD / Wayne Mccoy MD Interpreting Provider: Wayne Mccoy MD - EKG Data EKG attestation: Yes I reviewed and interpreted this EKG. Rate: Reports: normal Rhythm: Reports: A.Fib [place]/QRS: Reports: LAHB/LAFB Interpretation: Reports: no acute changes, unchanged when compared to prior tracing (date) (08/01/16)
[2016-08-07 20:04] LABS: Basophils % 0.2 %; Hematocrit 33.6 % (35.3-44.9); Hemoglobin 10.5 g/dL (11.5-15.4); Immature Granulocytes % 0.5 % (0-4); Lymphocytes # 0.3 K/mcL (0.6-4.6); Lymphocytes % 7.9 %; Mean Corpuscular HGB Conc 31.3 g/dL (31.6-35.5); Mean Corpuscular Hemoglobin 26.3 pg (28.0-33.3); Mean Corpuscular Volume 84.2 fL (83.0-100.0); Mean Platelet Volume 10.8 fL (9.4-12.4); Monocytes # 0.3 K/mcL (0.0-1.3); Monocytes % 7.9 %; Neutrophils # 3.6 K/mcL (1.6-8.9); Platelet Count 151 K/mcL (140-400); Red Blood Count 3.99 M/mcL (3.82-4.97); Red Cell Distribution Width 18.5 % (11.5-14.5); Segmented Neutrophils % 83.5 %
[2016-08-07 20:22] LABS: Calcium 9.4 mg/dL (8.6-10.8); Potassium 5.4 mEq/L (3.5-4.5)
[2016-08-07 20:36] LABS: INR 4.1
[2016-08-07 20:37] LABS: Prothrombin Time 46.5 Seconds (9.4-12.1)
[2016-08-07] MEDS ORDERED: Insulin Human Regular 10 UNIT in 0.9 % Sodium Chloride 10 ML IV ONE (21:12)
[2016-08-07] MEDS ORDERED: *HR* Dextrose 50 % in Water (Syg) 50 ML SYRINGE IV ONE (21:12)
[2016-08-07] MEDS ORDERED: Calcium Gluconate 1,000 MG/10 ML VIAL IV ONE (21:12)
[2016-08-07] MEDS ORDERED: INSULIN HUMAN REGULAR IV ONE ×2 (21:45→22:44)
[2016-08-07] MEDS ORDERED: Insulin LISPRO 300 UNITS/3 ML VIAL SQ ONE ×2 (21:45→22:44)
[2016-08-07] MEDS ORDERED: SODIUM CHLORIDE 0.9% IV ONE ×2 (21:45→22:44)
[2016-08-07] MEDS ORDERED: Naloxone 0.4 MG/ML INJ IVP PRN ×2 (22:25→22:44)
[2016-08-07] MEDS ORDERED: Ipratropium/Albuterol Neb 3 ML IH SCH (22:44)
[2016-08-07] MEDS ORDERED: Nitroglycerin 0.4 MG TAB.SUBL SL PRN (22:44)
[2016-08-07] MEDS ORDERED: Insulin Human Regular 300 UNIT/3 ML per UNIT IV ONE (23:15)
[2016-08-08] MEDS: Ipratropium/Albuterol Neb 3 ML IH SCH ×4 (00:29→12:24)
[2016-08-08 06:43] LABS: Calcium 9.4 mg/dL (8.6-10.8); Potassium 4.5 mEq/L (3.5-4.5)
[2016-08-08] MEDS: *HR* Glimepiride 2 MG TABLET PO SCH (08:14)
[2016-08-08] MEDS: Isosorbide MONOnitrate (24 HR) 60 MG TAB.ER.24H PO SCH (08:15)
[2016-08-08] MEDS: Folic Acid 1 MG TABLET PO SCH (08:16)
[2016-08-08] MEDS: Cyanocobalamin (B-12) 1,000 MCG TABLET PO SCH (08:16)
[2016-08-08] MEDS ORDERED: PredniSONE 20 MG TABLET PO SCH (09:00)
[2016-08-08] MEDS ORDERED: Furosemide 20 MG TABLET PO SCH (09:00)
--- NOTE | 2016-08-08 11:52 | Electrocardiograph Report ---
[address] [place] [address] Test Date: 2016-08-07 Pat Name: Trinity Beebe Department: 9201 Room: 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
--- NOTE | 2016-08-08 15:10 | Internal Med History&Physical ---
Date of Encounter: 08/08/16 Time of Encounter: 14:45 Assessment and Plan (1) Dyspnea Current visit: Yes Status: Acute Suspect multifactorial etiology. Order chest CT, viral respiratory panel and pro calcitonin. We will treat for heart failure. Qualifiers: Dyspnea type: shortness of breath Qualified Code(s): R06.02 - Shortness of breath (2) Atrial fibrillation Current visit: Yes Status: Chronic Continue Coumadin and monitor pro time Qualifiers: Atrial fibrillation type: chronic Qualified Code(s): I48.2 - Chronic atrial fibrillation (3) CKD (chronic kidney disease) stage 3, GFR 30-59 ml/min Current visit: Yes Status: Chronic We will monitor renal indices. (4) Diabetes mellitus Current visit: No Status: Chronic Hemoglobin A1c was 6.6% on 05/23/2015. 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 Will change Lasix to Bumex and add Lanoxin. Qualifiers: Congestive heart failure type: systolic Congestive heart failure chronicity : chronic Qualified Code(s): I50.22 - Chronic systolic (congestive) heart failure (6) Bronchitis Current visit: Yes Status: Acute We will order chest CT as per above and check pro-calcitonin and viral respiratory panel Internal Medicine - H&P: HPI Chief complaint: Cough and dyspnea Admitted From: Home Plans for Post Hospital Care: Home History of present illness: Ms. Beebe is a 71 year old female who came to emergency room complaining of cough and dyspnea worsening over the preceding 2 days. The cough was nonproductive. She had been seen in emergency room excellently 5 days previously and diagnosed with bronchitis. She was not given antibiotics but was discharged with inhaler, oral steroids, and antitussive medication. She did not feel improved she came back to emergency room and was evaluated and admitted to [facility] floor for ongoing care needs. Her respiratory history is significant for having smoked from age [age] up to 1- 1/2 packs per day. She refused to be considered for home oxygen at her last hospitalization at [facility] approximately 2 months ago. She states she had a nocturnal oxygen test in 2014 that indicated she did not require home oxygen. Past Med Surg Social Fam HX - Past Medical History Medical history: atrial fibrillation, cardiomyopathy, CHF, coronary artery disease, diabetes, hyperlipidemia, hypertension, myocardial infarction, renal disease Psychiatric history: depression - Past Surgical History Surgical History: no surgical history, other - Social History Smoking Status: Former smoker Smokeless Tobacco Status: No Alcohol use: rarely Drug use: none - Family History Father Living Status: Hx Family Cancer: Yes (lung) Internal Medicine - H&P: Meds Losartan [Cozaar] 100 mg PO HS 12/20/14 [History] Ergocalciferol (VITAMIN D2) [Vitamin D2 (50,000 UNIT)] 50,000 unit PO QWEEK [History] Warfarin [Coumadin] 3.5 mg PO DAILY 05/22/15 [History] Folic Acid 1 mg PO DAILY #90 tablet 08/06/15 [Rx] Carvedilol [Coreg] 25 mg PO BID 08/18/15 [History] Simvastatin [Zocor] 10 mg PO HS 08/18/15 [History] Allopurinol [Zyloprim 100 MG] 200 mg PO DAILY #60 tablet 06/10/16 [Rx] Cyanocobalamin (B-12) [Vitamin B12] 500 mcg PO DAILY tablet 06/10/16 [Rx] Glimepiride [Amaryl] 1 mg PO DAILY #30 tablet 06/10/16 [Rx] Isosorbide MONOnitrate (24 HR) [Imdur] 120 mg PO DAILY #60 tab.er.24h 06/10/16 [ Rx] Nitroglycerin [Nitrostat] 0.4 mg SL PRN PRN #1 vial 06/10/16 [Rx] HydrALAZINE 25 mg PO Q8HR 08/02/16 [History] Furosemide [Lasix] 40 mg PO BID MDD 40 MG 08/07/16 [History] Allergies No Known Allergies Allergy (Verified 08/07/16 18:53) All Systems PM: A 10-system review of systems was performed and is negative for pertinent findings except as documented above in the HPI. Review of systems: Gen.: Her weight is increased from 77.337 kg at a May 2015 hospitalization to 90.22 kg now. Cardiovascular: She has hypertension and known ASHD status post [place] 1998. She had a left heart catheter 2012 which showed completely occluded RCA. She had an echo December 2014 which showed LVEF of 30-35% with hypokinesis or akinesis of all segments. There was elevated estimated RVSP at 56 mmHg. She has chronic atrial fibrillation. She denies DVT or pulmonary embolus. Respiratory: As per history of present illness : She has CKD stage III and follows with a yardage estimator at [facility]. She denies other kidney or bladder disorders GI: she denies disorders of her liver gallbladder or exocrine pancreas Neurologic: She denies large distribution strokes or seizures Endocrine: She was diagnosed with DM 2 in 1998. She has hyperlipidemia but no known thyroid disease Hematology/oncology: She has anemia but denies other blood disorders or internal malignancies. Anemia workup during the May 2015 hospitalization showed no factor deficiency. Psychiatric: She has no known anxiety depression or other mental health issues Musk skeletal: She has had elevated uric acid but has not been diagnosed with gout in the past. She was prescribed allopurinol at the time of her last discharge. She has minimal DJD. - Constitutional Vitals: Temp Pulse Resp BP Pulse Ox 98.6 F 100 20 102/67 87 08/08/16 10:59 08/08/16 10:59 08/08/16 12:24 08/08/16 10:59 08/08/16 14:59 Exam: General: She is well-developed well-nourished female who appears in minimal distress at present time HEENT: Head is atraumatic normocephalic. Eyes: EOMI. There is no scleral icterus. Mouth: Mucosa is moist. Neck: Supple and nontender. There is no thyromegaly or adenopathy noted. Heart: Irregularly irregular without murmurs or gallops. Lungs: No wheezes or crackles are heard. She has scattered rhonchi bilaterally. There is no egophony. Abdomen: Soft and nontender. No masses or guarding are noted. Extremities: There is trace edema bilaterally on the dorsum of the feet and lower anterior shins. She has minimal DJD changes of her hands. Neurologic: Mental status: She is talkative and a good historian. Cranial nerves: Smile is symmetric. Forehead wrinkles bilaterally. Tongue protrudes midline. EOMI. Motor: There is no pronator drift. Cerebellar: Finger to nose is intact bilaterally. Skin: Warm and dry Internal Med - H&P Results - Labs CBC & Chem 7: 08/07/16 19:54 08/08/16 06:07 Labs: BMP 08/08/16 06:07 Sodium 139 Potassium 4.5 Chloride 104 Carbon Dioxide 25 BUN 50 H Creatinine 1.55 H Glucose 270 H Calcium 9.4
[2016-08-08] MEDS: Albuterol 2.5 MG/3 ML NEBULIZER IH PRN ×2 (16:26→20:06)
[2016-08-08] MEDS ORDERED: *HR* Dextrose 50 % in Water (Syg) 50 ML SYRINGE IVP PRN (17:33)
[2016-08-08] MEDS ORDERED: Dextrose Gel 15 GM PO PRN ×2 (17:33)
[2016-08-08] MEDS ORDERED: D5% in Water 1,000 ML IVC PRN (17:33)
[2016-08-08] MEDS: *HR* Digoxin 0.25 MG TABLET PO SCH (17:37)
[2016-08-08] MEDS ORDERED: *HR* Warfarin 1 MG TABLET PO SCH (18:00)
[2016-08-08] MEDS: Insulin LISPRO 300 UNITS/3 ML VIAL SQ SCH (20:09)
[2016-08-09] MEDS: Albuterol 2.5 MG/3 ML NEBULIZER IH PRN ×2 (00:08→18:04)
[2016-08-09 06:02] LABS: Basophils % 0.2 %; Eosinophils % 0.3 %; Hematocrit 30.1 % (35.3-44.9); Hemoglobin 9.4 g/dL (11.5-15.4); Immature Granulocytes % 0.3 % (0-4); Lymphocytes # 0.8 K/mcL (0.6-4.6); Lymphocytes % 13.4 %; Mean Corpuscular HGB Conc 31.2 g/dL (31.6-35.5); Mean Corpuscular Volume 83.4 fL (83.0-100.0); Mean Platelet Volume 10.8 fL (9.4-12.4); Monocytes # 0.9 K/mcL (0.0-1.3); Monocytes % 14.8 %; Neutrophils # 4.5 K/mcL (1.6-8.9); Platelet Count 160 K/mcL (140-400); Red Blood Count 3.61 M/mcL (3.82-4.97); Red Cell Distribution Width 18.3 % (11.5-14.5)
[2016-08-09 06:07] LABS: INR 2.7; Prothrombin Time 29.8 Seconds (9.4-12.1)
[2016-08-09 06:23] LABS: Calcium 9.1 mg/dL (8.6-10.8); Potassium 4.3 mEq/L (3.5-4.5); Uric Acid 6.8 mg/dL (2.6-6.0)
[2016-08-09] MEDS: Insulin LISPRO 300 UNITS/3 ML VIAL SQ SCH ×4 (07:48→21:22)
[2016-08-09] MEDS: Cyanocobalamin (B-12) 1,000 MCG TABLET PO SCH (07:52)
[2016-08-09] MEDS: *HR* Glimepiride 2 MG TABLET PO SCH (07:53)
[2016-08-09] MEDS: Bumetanide 1 MG TABLET PO SCH (07:53)
[2016-08-09] MEDS: Isosorbide MONOnitrate (24 HR) 60 MG TAB.ER.24H PO SCH (07:53)
[2016-08-09] MEDS: *HR* Digoxin 0.25 MG TABLET PO SCH (07:54)
[2016-08-09] MEDS: Folic Acid 1 MG TABLET PO SCH (07:55)
[2016-08-09 10:26] LABS: Folate 16.5 ng/mL (7.0-31.4)
--- NOTE | 2016-08-09 10:41 | Internal Med Progress Note ---
Date of Encounter: 08/09/16 Time of Encounter: 10:25 - Assessment and plan (1) Dyspnea Current Visit: Yes Status: Acute Assessment and plan: August 09. CT showed no obvious infiltrate. Bn peptide has improved. Viral respiratory panel and pro-calcitonin are pending. Continue present regimen. Anticipate discharge tomorrow Qualifiers: Dyspnea type: shortness of breath Qualified Code(s): R06.02 - Shortness of breath (2) Atrial fibrillation Current Visit: Yes Status: Chronic Assessment and plan: August 09. Continue Coumadin and monitor pro time. Qualifiers: Atrial fibrillation type: chronic Qualified Code(s): I48.2 - Chronic atrial fibrillation (3) CKD (chronic kidney disease) stage 3, GFR 30-59 ml/min Current Visit: Yes Status: Chronic Assessment and plan: August 09. Will monitor renal indices periodically. (4) Diabetes mellitus Current Visit: No Status: Chronic Assessment and plan: August 09. Hemoglobin A1c was 6.6% on 05/23/2015. 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 Continue Imdur, Cozaar, hydralazine, Coreg, Bumex, and Lanoxin. Qualifiers: Congestive heart failure type: systolic Congestive heart failure chronicity : chronic Qualified Code(s): I50.22 - Chronic systolic (congestive) heart failure (6) Bronchitis Current Visit: Yes Status: Acute Assessment and plan: August 09. Will give Symbicort, Robitussin-DM, and Tessalon (7) Anemia Current Visit: Yes Status: Acute Assessment and plan: August 09. B12 and folate were normal at 580 and 16.5 respectively. Iron studies show iron 19, transferrin saturation 5%, transferrin 248, and ferritin 42. We will start ferrous sulfate and vitamin C in a.m. Qualifiers: Anemia type: unspecified type Qualified Code(s): D64.9 - Anemia, unspecified (8) Hyperuricemia Current Visit: Yes Status: Chronic Assessment and plan: August 09. Uric acid level returned elevated at 6.8. Will increase allopurinol to 300 mg daily. - Subjective Interval history: August 09. She has no new complaints. She states she is still coughing and dyspneic. - Constitutional Vitals: Temp Pulse Resp BP Pulse Ox 98.3 F 85 17 105/55 96 08/09/16 07:18 08/09/16 07:18 08/09/16 07:18 08/09/16 07:18 08/09/16 09:22 Exam: She is sitting in bed and appears to be resting fairly comfortable. She did have episodes of coughing during my visit. Her edema is trace bilaterally Internal Medicine: Result - Labs CBC & Chem 7: 08/09/16 05:10 08/09/16 05:10 Labs: Short CBC 08/09/16 Range/Units 05:10 WBC 6.3 (4.3-11.1) K/mcL Hgb 9.4 L (11.5-15.4) g/dL Hct 30.1 L (35.3-44.9) % Plt Count 160 (140-400) K/mcL Neutrophils # 4.5 (1.6-8.9) K/mcL BMP 08/09/16 05:10 Sodium 141 Potassium 4.3 Chloride 104 Carbon Dioxide 27 BUN 54 H Creatinine 1.53 H Glucose 140 H Calcium 9.1 - ABG Interpretation ABG results: PT/INR, D-dimer PT 29.8 Seconds (9.4-12.1) H 08/09/16 05:10 - Impressions Impressions Chest CT 08/08/16 15:25 IMPRESSION: 1. Peribronchial thickening and patchy ground-glass opacities in the bilateral lung bases. Pattern suspected to represent mild pulmonary edema in this patient with CHF. 2. A viral infection or early developing pneumonitis would be considered less likely. 3. Chronic granulomatous changes in the chest. D/ / Isra Jalloh MD / Isra Jalloh MD Interpreting Provider: Isra Jalloh MD Consult Discharge Plan - Plan
[2016-08-09] MEDS: Benzonatate 100 MG CAPSULE PO SCH ×3 (11:59→21:17)
[2016-08-09] MEDS: Budesonide/Formoterol 160/4.5 MDI IH SCH (12:08)
[2016-08-09] MEDS ORDERED: *HR* Warfarin 1 MG TABLET PO SCH (18:00)
[2016-08-10] MEDS: Albuterol 2.5 MG/3 ML NEBULIZER IH PRN ×2 (00:12→09:48)
[2016-08-10] MEDS: Budesonide/Formoterol 160/4.5 MDI IH SCH ×2 (00:12→09:48)
[2016-08-10] MEDS: Insulin LISPRO 300 UNITS/3 ML VIAL SQ SCH ×2 (00:28→13:14)
[2016-08-10] MEDS: Ascorbic Acid 500 MG TABLET PO SCH ×2 (06:19→13:18)
[2016-08-10 06:44] LABS: Basophils % 0.1 %; Eosinophils % 0.5 %; Hematocrit 31.6 % (35.3-44.9); Hemoglobin 9.8 g/dL (11.5-15.4); Immature Granulocytes % 0.5 % (0-4); Lymphocytes # 0.8 K/mcL (0.6-4.6); Lymphocytes % 8.8 %; Mean Corpuscular Volume 83.8 fL (83.0-100.0); Monocytes # 1.1 K/mcL (0.0-1.3); Neutrophils # 6.8 K/mcL (1.6-8.9); Platelet Count 161 K/mcL (140-400); Red Blood Count 3.77 M/mcL (3.82-4.97); Red Cell Distribution Width 18.1 % (11.5-14.5); Segmented Neutrophils % 77.1 %
[2016-08-10 07:04] LABS: Potassium 3.9 mEq/L (3.5-4.5)
--- NOTE | 2016-08-10 09:43 | Discharge Summary ---
Date of Encounter: 08/10/16 Time of Encounter: 09:30 - Discharge Diagnosis (1) Bronchitis Priority: Primary Status: Acute (2) Atrial fibrillation Priority: Secondary Status: Chronic Qualifiers: Atrial fibrillation type: chronic Qualified Code(s): I48.2 - Chronic atrial fibrillation (3) CKD (chronic kidney disease) stage 3, GFR 30-59 ml/min Priority: Secondary Status: Chronic (4) Diabetes mellitus Priority: Secondary Status: Chronic Qualifiers: Diabetes mellitus type: type 2 Diabetes mellitus complication status: with kidney complications Diabetes mellitus complication detail: with chronic kidney disease Diabetes mellitus 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 insulin use: with 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 use Chronic kidney disease stage: stage 3 (moderate) Qualified Code(s): E11.22 - Type 2 diabetes mellitus with diabetic chronic kidney disease; N18.3 - Chronic kidney disease, stage 3 (moderate); Z79.4 - long term care administrator (current) use of insulin (5) CHF (congestive heart failure) Priority: Secondary Status: Chronic Qualifiers: Congestive heart failure type: systolic Congestive heart failure chronicity : chronic Qualified Code(s): I50.22 - Chronic systolic (congestive) heart failure (6) Anemia Priority: Secondary Status: Acute Qualifiers: Anemia type: unspecified type Qualified Code(s): D64.9 - Anemia, unspecified (7) Hyperuricemia Priority: Secondary Status: Chronic - Discharge Medications Prescriptions: Allopurinol [Zyloprim 300 MG] 300 mg PO DAILY #30 tablet Ascorbic Acid [Vitamin C] 500 mg PO DAILY #30 tablet Bumetanide [Bumex] 1.5 mg PO DAILY #45 tablet Digoxin [Lanoxin] 0.125 mg PO DAILY #30 tablet Ferrous Sulfate 325 mg PO DAILY #30 tablet Home Medications: Losartan [Cozaar] 100 mg PO HS 12/20/14 [History] Ergocalciferol (VITAMIN D2) [Vitamin D2 (50,000 UNIT)] 50,000 unit PO QWEEK [History] Warfarin [Coumadin] 3.5 mg PO DAILY 05/22/15 [History] Folic Acid 1 mg PO DAILY #90 tablet 08/06/15 [Rx] Carvedilol [Coreg] 25 mg PO BID 08/18/15 [History] Simvastatin [Zocor] 10 mg PO HS 08/18/15 [History] Cyanocobalamin (B-12) [Vitamin B12] 500 mcg PO DAILY tablet 06/10/16 [Rx] Glimepiride [Amaryl] 1 mg PO DAILY #30 tablet 06/10/16 [Rx] Isosorbide MONOnitrate (24 HR) [Imdur] 120 mg PO DAILY #60 tab.er.24h 06/10/16 [ Rx] Nitroglycerin [Nitrostat] 0.4 mg SL PRN PRN #1 vial 06/10/16 [Rx] HydrALAZINE 25 mg PO Q8HR 08/02/16 [History] Allopurinol [Zyloprim 300 MG] 300 mg PO DAILY #30 tablet 08/10/16 [Rx] Ascorbic Acid [Vitamin C] 500 mg PO DAILY #30 tablet 08/10/16 [Rx] Bumetanide [Bumex] 1.5 mg PO DAILY #45 tablet 08/10/16 [Rx] Digoxin [Lanoxin] 0.125 mg PO DAILY #30 tablet 08/10/16 [Rx] Ferrous Sulfate 325 mg PO DAILY #30 tablet 08/10/16 [Rx] Allergies/Adverse Reactions: Allergies No Known Allergies Allergy (Verified 08/07/16 18:53) Procedures/tests Complete & Pending: Procedures Performed prior 72 hours Category Date Time Status CT chest wo con [CT] Routine Cat Scan 08/08/16 15:25 Completed Date of admission: 08/07/16 22:38 Primary care physician: Shira Plummer - Patient Status Disposition: Home, Self-Care Condition: Good Overall status at discharge: patient is progressing back to baseline - Discharge Instructions Follow Up With: Shira Plummer CNP [Primary Care Provider] - 1 week Forms: ED Satisfaction Letter - Diet and Activity Activity: resume usual activities as tolerated Diet: advance to your usual diet Hospital course: Ms. Beebe is a 71 year old female who came to emergency room complaining of cough and dyspnea worsening over the preceding 2 days. The cough was nonproductive. She had been seen in emergency room excellently 5 days previously and diagnosed with bronchitis. She was not given antibiotics but was discharged with inhaler, oral steroids, and antitussive medication. She did not feel improved she came back to emergency room and was evaluated and admitted to [facility] for ongoing care needs. Initial orders were were written by the emergency room physician. I saw her on Sue 3 and performed the history and physical. A chest CT was ordered for further evaluation. There was peribronchial thickening and patchy groundglass opacities in the bases felt to represent pulmonary edema and less likely a viral infection or early pneumonitis. WBC remained normal at 8.8 on the day of discharge with segs 77.1%. Her potassium normalized and creatinine improved to 1.23 and the day of discharge with estimated GFR rising to 43. He was placed on Bumex and Lanoxin and these were continued discharge. Lasix will be discontinued. Uric acid level returned elevated at 6.8. Her allopurinol dose was increased to 300 mg daily and this will be continued at discharge. Anemia testing showed iron 19, transferrin saturation 5%, ferritin 42, B12 580, and folate 16.5. She will continue ferrous sulfate with vitamin C of discharge. There were no new problems otherwise and on August 10 I felt she was stable for discharge home. She will follow with her PCP Shira Plummer CNP within 1 week. She again refused consideration for home oxygen so room air oximeter testing was not done. - Time Spent with Patient Total time spent providing and/or coordinating discharge services: - Constitutional Vitals: Temp Pulse Resp BP Pulse Ox 97.8 F 85 18 103/60 96 08/10/16 07:20 08/10/16 07:20 08/10/16 07:20 08/10/16 07:20 08/10/16 07:20
[2016-08-10] MEDS: *HR* Glimepiride 2 MG TABLET PO SCH (10:30)
[2016-08-10] MEDS: *HR* Digoxin 0.25 MG TABLET PO SCH (10:30)
[2016-08-10] MEDS: Benzonatate 100 MG CAPSULE PO SCH (10:30)
[2016-08-10] MEDS: Folic Acid 1 MG TABLET PO SCH (10:30)
[2016-08-10] MEDS: Isosorbide MONOnitrate (24 HR) 60 MG TAB.ER.24H PO SCH (10:30)
[2016-08-10] MEDS: Bumetanide 1 MG TABLET PO SCH (10:30)
[2016-08-10] MEDS: Cyanocobalamin (B-12) 1,000 MCG TABLET PO SCH (10:30)
--- NOTE | 2016-08-10 10:52 | Physician Discharge Referral ---
Home Health/Hosp Referral Info Transfer to: Home Health Attending Provider: Sarthak Provider in Charge Post Discharge: PCP (Shira Plummer CNP) - Diagnosis (1) Bronchitis Priority: Primary Status: Acute (2) Atrial fibrillation Priority: Secondary Status: Chronic (3) CKD (chronic kidney disease) stage 3, GFR 30-59 ml/min Priority: Secondary Status: Chronic (4) Diabetes mellitus Priority: Secondary Status: Chronic (5) CHF (congestive heart failure) Priority: Secondary Status: Chronic (6) Anemia Priority: Secondary Status: Acute (7) Hyperuricemia Priority: Secondary Status: Chronic - Respiratory Orders Smoking Cessation: Smoking cessation has been advised. For more information, call the [place] Tobacco Quit Line at 1-279-ODMH-NOW. - Diet/Nutrition Diet/Nutrition Orders: No Concentrated Sweets - Activity Activity Orders: Ambulate - Services Needed Following services are medically necessary services: Nursing, Home Health Aide, Physical Therapy, Occupational Therapy - Transfer Medications Prescriptions: Allopurinol [Zyloprim 300 MG] 300 mg PO DAILY #30 tablet Ascorbic Acid [Vitamin C] 500 mg PO DAILY #30 tablet Bumetanide [Bumex] 1.5 mg PO DAILY #45 tablet Digoxin [Lanoxin] 0.125 mg PO DAILY #30 tablet Ferrous Sulfate 325 mg PO DAILY #30 tablet Home Medications: Losartan [Cozaar] 100 mg PO HS 12/20/14 [History] Ergocalciferol (VITAMIN D2) [Vitamin D2 (50,000 UNIT)] 50,000 unit PO QWEEK [History] Warfarin [Coumadin] 3.5 mg PO DAILY 05/22/15 [History] Folic Acid 1 mg PO DAILY #90 tablet 08/06/15 [Rx] Carvedilol [Coreg] 25 mg PO BID 08/18/15 [History] Simvastatin [Zocor] 10 mg PO HS 08/18/15 [History] Cyanocobalamin (B-12) [Vitamin B12] 500 mcg PO DAILY tablet 06/10/16 [Rx] Glimepiride [Amaryl] 1 mg PO DAILY #30 tablet 06/10/16 [Rx] Isosorbide MONOnitrate (24 HR) [Imdur] 120 mg PO DAILY #60 tab.er.24h 06/10/16 [ Rx] Nitroglycerin [Nitrostat] 0.4 mg SL PRN PRN #1 vial 02/03/17 [Rx] HydrALAZINE 25 mg PO Q8HR 08/02/16 [History] Allopurinol [Zyloprim 300 MG] 300 mg PO DAILY #30 tablet 08/10/16 [Rx] Ascorbic Acid [Vitamin C] 500 mg PO DAILY #30 tablet 08/10/16 [Rx] Bumetanide [Bumex] 1.5 mg PO DAILY #45 tablet 08/10/16 [Rx] Digoxin [Lanoxin] 0.125 mg PO DAILY #30 tablet 08/10/16 [Rx] Ferrous Sulfate 325 mg PO DAILY #30 tablet 08/10/16 [Rx] Allergies/Adverse Reactions: Allergies No Known Allergies Allergy (Verified 08/07/16 18:53) Certification: Further, I certify that my clinical findings support that this patient is homebound (i.e. absences from home require considerable and taxing effort and are for medical reasons or church services or infrequently or short duration when for other reasons) because: Homebound Reason: Leaving home requires considerable and taxing effort due to condition (Dyspnea on exertion with hypoxemia and heart failure) Attestation: My signature below is to certify that this patient is under my care and that I, or nurse practitioner, or a physician's ophthalmic surgical assistant working with me, has a face-to -face encounter with this patient.
[2016-08-10 10:57] VITALS: BP 110/70
[2016-08-12 07:27] LABS: Influenza A PCR Body Fluid NOT DETECTED; Influenza B PCR Body Fluid NOT DETECTED; RSV PCR Body Fluid NOT DETECTED
== END 2016-08-10 14:00 | disposition home health service (06) ==
LOC: EMEROOPIK 18:49 → INPPIK 18:49
PROVIDERS: ADMIT Internal Medicine; ATTEND Internal Medicine

== ENCOUNTER 2016-08-11 01:09 | Inpatient (IN) ==
--- NOTE | 2016-08-11 02:46 | Emergency Department Note ---
Disposition Clinical Impression: Acute exacerbation of chronic obstructive airways disease Disposition: Admitted As Inpatient Condition: Fair Time of Disposition: 02:48 ([facility]) SOB HPI - General Chief Complaint: ED Shortness of Breath/Dyspnea Time Seen by Provider: 08/11/16 01:15 Source: patient, EMS Mode of arrival: EMS Limitations: no limitations Nursing Notes Reviewed: Yes Vital Signs Reviewed: Yes - History of Present Illness Patient brought in by local EMS after having been discharged earlier in the day was sent home only with one oxygen tank it is unclear but he oxygen company did not arrived to the patient's house and she did not receive any further oxygen tanks or condenser as a result she has increasing shortness of breath since her oxygen tank ran out and was feeling increasing worsening of overall symptoms she is brought back to the emergency room for evaluation states that she has had no fever no chills she is having call she is having shortness of breath she denies any blurred vision but was also having diarrhea melena or hematemesis Pt Subjective Complaint: shortness of breath Onset (ago): day(s) Context: recent illness Severity: moderate Consistency/Duration: constant, gradually worsening ( oxygen ran out) Improves with: oxygen Worsens with: movement Known history of: COPD, HIV Associated symptoms: Reports: sense of impending doom. Denies: chest pain, pain with inspiration, fever, cough, wheezing, sputum production, orthopnea, lower extremity pain, polyuria, polydipsia, parasthesias, palpitations, hemoptysis, nausea/vomiting, syncope, abdominal pain, rash Treatment prior to arrival: oxygen - Related Data Home Medications Medication Instructions Recorded Confirmed Losartan [Cozaar] 100 mg PO HS 12/20/14 08/07/16 Ergocalciferol (VITAMIN D2) 50,000 unit PO QWEEK 05/22/15 08/07/16 [Vitamin D2 (50,000 UNIT)] Warfarin [Coumadin] 3.5 mg PO DAILY 05/22/15 08/07/16 Carvedilol [Coreg] 25 mg PO BID 08/18/15 08/07/16 Simvastatin [Zocor] 10 mg PO HS 08/18/15 08/07/16 HydrALAZINE 25 mg PO Q8HR 08/02/16 08/07/16 Previous Rx's Medication Instructions Recorded Folic Acid 1 mg PO DAILY #90 tablet 08/06/15 Cyanocobalamin (B-12) [Vitamin B12] 500 mcg PO DAILY tablet 06/10/16 Glimepiride [Amaryl] 1 mg PO DAILY #30 tablet 06/10/16 Isosorbide MONOnitrate (24 HR) 120 mg PO DAILY #60 tab.er.24h 06/10/16 [Imdur] Nitroglycerin [Nitrostat] 0.4 mg SL PRN PRN #1 vial 06/10/16 Allopurinol [Zyloprim 300 MG] 300 mg PO DAILY #30 tablet 08/10/16 Ascorbic Acid [Vitamin C] 500 mg PO DAILY #30 tablet 08/10/16 Bumetanide [Bumex] 1.5 mg PO DAILY #45 tablet 08/10/16 Digoxin [Lanoxin] 0.125 mg PO DAILY #30 tablet 08/10/16 Ferrous Sulfate 325 mg PO DAILY #30 tablet 08/10/16 Allergies Allergy/AdvReac Type Severity Reaction Status Date / Time No Known Allergies Allergy Verified 08/07/16 18:53 All systems ED: reviewed and negative except as stated. Constitutional: Denies: fever, chills, weakness Eyes: Denies: eye pain, eye discharge ENT ED: Denies: ear pain, throat pain Cardiovascular: Denies: chest pain, palpitations, dyspnea on exertion Respiratory: Reports: dyspnea, wheezes, sputum production. Denies: cough Gastrointestinal: Denies: abdominal pain, nausea, vomiting Genitourinary: Denies: urgency, dysuria, frequency Musculoskeletal: Denies: back pain, neck pain Integumentary: Denies: abrasion, lesions Neurological: Denies: headache, weakness, numbness Psychiatric: Denies: anxiety, depression Endocrine: Denies: fatigue Hematological/Lymphatic: Denies: easy bleeding Allergic/Immunologic: Denies: facial swelling Past Medical History - Past Medical History Attestation: Yes The following information was validated with the patient. Source: patient, old records reviewed, nursing notes reviewed Medical history: Reports: atrial fibrillation, cardiomyopathy, CHF, coronary artery disease, diabetes, hyperlipidemia, hypertension, myocardial infarction, renal disease Surgical history: Reports: no surgical history, other Psychiatric history: Reports: depression RETAIL MAINTENANCE TECHNICIAN history: Reports: no RETAIL MAINTENANCE TECHNICIAN history - Social History Smoking Status: Former smoker Smokeless Tobacco Status: No Alcohol use: Reports: rarely Drug use: Reports: none Physical Exam - General Limitations: no limitations General appearance: alert, in no apparent distress, anxious - Head Head exam: atraumatic, normocephalic, normal inspection - Eye Eye exam: Present: normal appearance, PERRL, EOMI - ENT ENT exam: normal exam, normal oropharynx, mucous membranes moist, normal external ear exam - Neck Neck exam: Present: normal inspection, full ROM - Chest Chest inspection: Present: symmetric chest wall rise - Respiratory Respiratory exam: Present: wheezes (And rhonchi), accessory muscle use, prolonged expiratory phase - Cardiovascular Cardiovascular exam: Present: regular rate, normal rhythm, normal heart sounds - Abdominal Exam Abdominal exam: Present: soft, Non-Tender, normal bowel sounds. Absent: mass, pulsatile mass - Extremities Exam Extremities exam: Present: normal inspection, full ROM, normal capillary refill. Absent: tenderness - Expanded Lower Extremity Exam Neurovascular/Tendon exam: Present: normal capillary refill, normal fine/light touch - Back Exam Back exam: Present: normal inspection, full ROM. Absent: muscle spasm - Neurological Exam Neurological exam: Present: alert, oriented X3, CN II-XII intact - Psychiatric Psychiatric exam: Present: anxious - Skin Skin exam: Present: warm, dry, intact, normal color Course Course Narrative: Patient was seen and examined patient was admitted because of inability to obtain oxygen supplementation to the patient through the course tonight patient understands patient be discharged in the morning patient continued on present medications stable at transfer to [facility] patient given aerosol treatment upon arrival Vital Signs Temperature 97.5 F L 08/11/16 01:13 Pulse Rate 87 08/11/16 01:13 Respiratory Rate 16 08/11/16 01:13 Blood Pressure 162/87 08/11/16 01:13 O2 Sat by Pulse Oximetry 93 08/11/16 01:13 Temperature 98.5 F 08/11/16 04:02 Pulse Rate 91 08/11/16 04:02 Respiratory Rate 18 08/11/16 04:02 Blood Pressure 138/71 08/11/16 04:02 O2 Sat by Pulse Oximetry 94 08/11/16 04:02 Oxygen Delivery Oxygen Delivery Nasal Cannula Shortness of Breath/Dyspnea - Differential Diagnosis Likely: acute exacerbation of chronic obstructive airways disease - Lab Data Result diagrams: 08/11/16 03:15 04/06/17 03:15 - EKG Data EKG attestation: Yes I reviewed and interpreted this EKG. EKG results narrative: Atrial fib left anterior fascicular block rate 76 QRS 129 QT 356 axis -66 Critical Care Time Critical Care Time: No
[2016-08-11 03:21] LABS: Basophils % 0.1 %; Eosinophils % 0.1 %; Hematocrit 31.6 % (35.3-44.9); Hemoglobin 9.7 g/dL (11.5-15.4); Immature Granulocytes % 0.7 % (0-4); Lymphocytes # 0.4 K/mcL (0.6-4.6); Lymphocytes % 3.6 %; Mean Corpuscular HGB Conc 30.7 g/dL (31.6-35.5); Mean Corpuscular Hemoglobin 25.8 pg (28.0-33.3); Mean Platelet Volume 9.6 fL (9.4-12.4); Monocytes # 1.3 K/mcL (0.0-1.3); Monocytes % 11.4 %; Neutrophils # 9.8 K/mcL (1.6-8.9); Platelet Count 151 K/mcL (140-400); Red Blood Count 3.76 M/mcL (3.82-4.97); Red Cell Distribution Width 17.9 % (11.5-14.5); Segmented Neutrophils % 84.1 %
[2016-08-11 03:27] LABS: INR 1.8
[2016-08-11 03:37] LABS: Calcium 9.1 mg/dL (8.6-10.8); Potassium 4.5 mEq/L (3.5-4.5)
[2016-08-11] MEDS ORDERED: Nitroglycerin 0.4 MG TAB.SUBL SL PRN (04:27)
[2016-08-11] MEDS ORDERED: Naloxone 0.4 MG/ML INJ IVP PRN (04:27)
[2016-08-11] MEDS ORDERED: Acetaminophen 325 MG TABLET PO PRN (04:27)
[2016-08-11] MEDS ORDERED: *HR* Warfarin 1 MG TABLET PO SCH (09:00)
[2016-08-11] MEDS ORDERED: Ascorbic Acid 500 MG TABLET PO SCH (09:00)
[2016-08-11] MEDS: *HR* Glimepiride 2 MG TABLET PO SCH (09:14)
[2016-08-11] MEDS: Bumetanide 1 MG TABLET PO SCH (09:15)
[2016-08-11] MEDS: Folic Acid 1 MG TABLET PO SCH (09:16)
[2016-08-11] MEDS: *HR* Digoxin 0.125 MG TABLET PO SCH (09:17)
[2016-08-11] MEDS: Cyanocobalamin (B-12) 1,000 MCG TABLET PO SCH (09:17)
[2016-08-11] MEDS: Isosorbide MONOnitrate (24 HR) 60 MG TAB.ER.24H PO SCH (09:18)
--- NOTE | 2016-08-11 13:37 | Electrocardiograph Report ---
[address] [place], [place] [address] Test Date: 2016-08-11 Pat Name: Trinity Beebe Department: [id number] Room: [facility] Gender: F Gas Producer: Adrian : [id number] Requested By: Najma Post Order Number: [id number] Reading MD: Josue Robertson MD Measurements Intervals [place] Rate: 76 P: ME: 0 QRS: -66 QRSD: 129 T: 100 QT: 356 QTc: 387 Interpretive Statements ATRIAL FIBRILLATION LEFT ANTERIOR FASCICULAR BLOCK Poor R wave progression Electronically Signed On 08-11-2016 13:35:33 EDT by Josue Robertson MD
--- NOTE | 2016-08-11 17:10 | Internal Med History&Physical ---
Date of Encounter: 08/11/16 Time of Encounter: 16:45 Assessment and Plan (1) Bronchitis Current visit: No Status: Acute Suspect possible bronchopneumonia present. We will give IV antibiotics and recheck labs in a.m. (2) CKD (chronic kidney disease), stage III Current visit: No Status: Chronic Renal indices are stable. Continue to monitor periodically. (3) Atrial fibrillation Current visit: No Status: Chronic Continue Coumadin and monitor pro time. Qualifiers: Atrial fibrillation type: chronic Qualified Code(s): I48.2 - Chronic atrial fibrillation (4) Anemia Current visit: No Status: Acute Continue ferrous sulfate with vitamin C. Qualifiers: Anemia type: unspecified type Qualified Code(s): D64.9 - Anemia, unspecified (5) Hyperuricemia Current visit: No Status: Chronic Continue allopurinol. Internal Medicine - H&P: HPI Chief complaint: Dyspnea Admitted From: Home Plans for Post Hospital Care: Home History of present illness: Ms. Beebe is a 71 year old female who came to emergency room complaining of dyspnea. She was discharged 08/10/2016 from [facility] after an 08/08/2016 admission for dyspnea. Chest CT during the hospitalization showed possible mild pulmonary edema with viral infection/early pneumonitis considered less likely. She was not discharged home on antibiotics because of probable viral infection and normal WBC. When she returned to emergency room WBC had risen slightly to 11.6 with further left shift. She was admitted to [facility] floor for ongoing care needs. Her respiratory history is significant for having smoked from age [age] up to 1- 1/2 packs per day. She initially declined home oxygen at time of discharge although room air oximetry saturations were 84%. After consulting with the long term care social worker and nursing staff she agreed to have home oxygen but states only a single tank was delivered without a concentrator. When the tank supply was exhausted she became more dyspneic and returned to emergency room. She states she still has dyspnea at this time as well as minimally productive cough. Past Med Surg Social Fam HX - Past Medical History Medical history: atrial fibrillation, cardiomyopathy, CHF, coronary artery disease, diabetes, hyperlipidemia, hypertension, myocardial infarction, renal disease Psychiatric history: depression - Past Surgical History Surgical History: no surgical history, other - Social History Smoking Status: Former smoker Smokeless Tobacco Status: No Alcohol use: rarely Drug use: none - Family History Father Living Status: Hx Family Cancer: Yes (lung) Internal Medicine - H&P: Meds Losartan [Cozaar] 100 mg PO HS 12/20/14 [History] Ergocalciferol (VITAMIN D2) [Vitamin D2 (50,000 UNIT)] 50,000 unit PO QWEEK [History] Warfarin [Coumadin] 3.5 mg PO DAILY 05/22/15 [History] Folic Acid 1 mg PO DAILY #90 tablet 08/06/15 [Rx] Carvedilol [Coreg] 25 mg PO BID 08/18/15 [History] Simvastatin [Zocor] 10 mg PO HS 08/18/15 [History] Cyanocobalamin (B-12) [Vitamin B12] 500 mcg PO DAILY tablet 06/10/16 [Rx] Glimepiride [Amaryl] 1 mg PO DAILY #30 tablet 06/10/16 [Rx] Isosorbide MONOnitrate (24 HR) [Imdur] 120 mg PO DAILY #60 tab.er.24h 06/10/16 [ Rx] Nitroglycerin [Nitrostat] 0.4 mg SL PRN PRN #1 vial 06/10/16 [Rx] HydrALAZINE 25 mg PO Q8HR 08/02/16 [History] Allopurinol [Zyloprim 300 MG] 300 mg PO DAILY #30 tablet 08/10/16 [Rx] Ascorbic Acid [Vitamin C] 500 mg PO DAILY #30 tablet 08/10/16 [Rx] Bumetanide [Bumex] 1.5 mg PO DAILY #45 tablet 08/10/16 [Rx] Digoxin [Lanoxin] 0.125 mg PO DAILY #30 tablet 08/10/16 [Rx] Ferrous Sulfate 325 mg PO DAILY #30 tablet 08/10/16 [Rx] Allergies No Known Allergies Allergy (Verified 08/07/16 18:53) All Systems PM: A 10-system review of systems was performed and is negative for pertinent findings except as documented above in the HPI. Review of systems: Review of systems from her recent [facility] history and physical reviewed and revised as below. Gen.: Her weight is increased from 77.337 kg at a May 2015 hospitalization to 90.248 kg now. Cardiovascular: She has hypertension and known ASHD status post [place] 1998. She had a left heart catheter 2012 which showed completely occluded RCA. She had an echo December 2014 which showed LVEF of 30-35% with hypokinesis or akinesis of all segments. There was elevated estimated RVSP at 56 mmHg. She has chronic atrial fibrillation. She denies DVT or pulmonary embolus. She was discharged home on Bumex and Lanoxin in addition to her other previous cardiac medications. Respiratory: As per history of present illness : She has CKD stage III and follows with a painting technician at [facility]. She denies other kidney or bladder disorders GI: she denies disorders of her liver gallbladder or exocrine pancreas Neurologic: She denies large distribution strokes or seizures Endocrine: She was diagnosed with DM 2 in 1998. She has hyperlipidemia but no known thyroid disease Hematology/oncology: She has anemia but denies other blood disorders or internal malignancies. Anemia workup during her hospitalization this week showed iron 19, transferrin saturation 5%, ferritin 42, B12 580, and folate 16.5. She was prescribed ferrous sulfate and vitamin C at discharge. Psychiatric: She has no known anxiety depression or other mental health issues Musk skeletal: She has had elevated uric acid but has not been diagnosed with gout in the past. Allopurinol dose was increased to 300 mg daily at the time of her discharge yesterday. She has minimal DJD. - Constitutional Vitals: Temp Pulse Resp BP Pulse Ox 97.8 F 76 18 108/56 94 08/11/16 14:25 08/11/16 14:25 08/11/16 14:25 08/11/16 14:25 08/11/16 14:25 Exam: Gen.: She is a well-developed well-nourished female who appears dyspneic. HEENT: Head is atraumatic and normocephalic. Eyes: EOMI. There is no scleral icterus. Mouth: Mucosa is moist. Neck: Supple and nontender. There is no thyromegaly or adenopathy noted. Heart: Irregularly irregular without murmurs or gallops. Lungs: No wheezes or crackles are heard. Abdomen: Soft and nontender. No masses or guarding are noted. Extremities: There is no cyanosis noted. She has trace edema of the dorsum of the feet and lower legs bilaterally. Dorsalis pedis and posterior tibial pulses are trace palpable. Her feet are warm to touch. Neurologic: Mental status: She is talkative and a good historian. Cranial nerves: Smile is symmetric. Forehead wrinkles bilaterally. Tongue protrudes midline. EOMI. Motor: There is no pronator drift. Cerebellar: Finger to nose is intact bilaterally. Skin: Warm and dry. She has numerous small telangiectasias on her face bilaterally. Internal Med - H&P Results - Labs CBC & Chem 7: 08/11/16 03:15 08/11/16 03:15 Labs: Short CBC 08/11/16 Range/Units 03:15 WBC 11.6 H (4.3-11.1) K/mcL Hgb 9.7 L (11.5-15.4) g/dL Hct 31.6 L (35.3-44.9) % Plt Count 151 (140-400) K/mcL Neutrophils # 9.8 H (1.6-8.9) K/mcL BMP 08/11/16 03:15 Sodium 141 Potassium 4.5 Chloride 102 Carbon Dioxide 29 BUN 40 H Creatinine 1.32 H Glucose 239 H Calcium 9.1
[2016-08-11] MEDS: Lactobacillus 1 EACH CAP.SPRINK PO SCH (20:37)
[2016-08-11] MEDS: Azithromycin 500 MG in D5% in Water 250 ML IVPB SCH (20:42)
[2016-08-11] MEDS: CefTRIAXone 1,000 MG in D5% in Water (Mini-Bag+) 100 ML IVPB SCH (21:49)
[2016-08-12 00:17] LABS: Blood Gas Liter Flow 4 L/MIN
[2016-08-12 00:22] LABS: ABG PCO2 61 mmHg (35-45); ABG PH 7.35 pH Units (7.32-7.45)
[2016-08-12 00:23] LABS: ABG Base Excess 8.2 mEq/L (-2.0 to 3.0); ABG HCO3 33.7 mEQ/L (21-27); ABG TCO2 35.6 mEq/L (20-26)
[2016-08-12 00:24] LABS: ABG Oxygen Saturation 81 % (95-98)
[2016-08-12 00:41] LABS: ABG PO2 48 mmHg (85-104)
[2016-08-12 05:06] LABS: Basophils % 0.2 %; Eosinophils # 0.1 K/mcL (0.0-0.6); Eosinophils % 0.4 %; Immature Granulocytes % 0.6 % (0-4); Lymphocytes # 0.6 K/mcL (0.6-4.6); Lymphocytes % 5.2 %; Mean Corpuscular HGB Conc 30.3 g/dL (31.6-35.5); Mean Corpuscular Hemoglobin 25.9 pg (28.0-33.3); Mean Corpuscular Volume 85.5 fL (83.0-100.0); Mean Platelet Volume 9.9 fL (9.4-12.4); Monocytes # 1.2 K/mcL (0.0-1.3); Monocytes % 10.5 %; Neutrophils # 9.8 K/mcL (1.6-8.9); Platelet Count 156 K/mcL (140-400); Red Blood Count 3.86 M/mcL (3.82-4.97); Segmented Neutrophils % 83.1 %
[2016-08-12 05:18] LABS: INR 1.7; Prothrombin Time 18.8 Seconds (9.4-12.1)
[2016-08-12] MEDS ORDERED: Ascorbic Acid 500 MG TABLET PO SCH (06:30)
[2016-08-12] MEDS: Isosorbide MONOnitrate (24 HR) 60 MG TAB.ER.24H PO SCH (09:13)
[2016-08-12] MEDS: Lactobacillus 1 EACH CAP.SPRINK PO SCH ×2 (09:13→22:09)
[2016-08-12] MEDS: *HR* Glimepiride 2 MG TABLET PO SCH (09:13)
[2016-08-12] MEDS: Folic Acid 1 MG TABLET PO SCH (09:13)
[2016-08-12] MEDS: *HR* Digoxin 0.125 MG TABLET PO SCH (09:13)
[2016-08-12] MEDS: Bumetanide 1 MG TABLET PO SCH (09:13)
[2016-08-12] MEDS: Cyanocobalamin (B-12) 1,000 MCG TABLET PO SCH (09:13)
[2016-08-12] MEDS: Ascorbic Acid 500 MG TABLET PO SCH (09:25)
[2016-08-12] MEDS: Cholecalciferol (D-3) 1,000 UNIT TABLET PO SCH (09:28)
--- NOTE | 2016-08-12 11:58 | Internal Med Progress Note ---
Date of Encounter: 08/12/16 Time of Encounter: 11:45 - Assessment and plan (1) Bronchitis Current Visit: No Status: Acute Assessment and plan: August 12. Will repeat chest CT since I am suspicious she has pneumonia. We will order viral respiratory panel and continue IV antibiotics with lactobacillus. (2) CKD (chronic kidney disease), stage III Current Visit: No Status: Chronic Assessment and plan: August 12. Continue to monitor renal indices. (3) Atrial fibrillation Current Visit: No Status: Chronic Assessment and plan: August 12. Continue Coumadin and monthly pro time Qualifiers: Atrial fibrillation type: chronic Qualified Code(s): I48.2 - Chronic atrial fibrillation (4) Anemia Current Visit: No Status: Acute Assessment and plan: August 12. Continue ferrous sulfate with vitamin C Qualifiers: Anemia type: unspecified type Qualified Code(s): D64.9 - Anemia, unspecified (5) Hyperuricemia Current Visit: No Status: Chronic Assessment and plan: August 12. Continue allopurinol - Subjective Interval history: August 12. She has no new complaints. She states she is still significantly dyspneic. - Constitutional Vitals: Temp Pulse Resp BP Pulse Ox 99.9 F H 77 18 126/64 92 08/12/16 11:05 08/12/16 11:05 08/12/16 11:05 08/12/16 11:05 08/12/16 11:30 Exam: She is sitting in bed and appears to be dyspneic. She is wearing oxygen by simple mask. Heart is irregularly irregular. Lungs show consolidation sounds in the right posterior mid and upper lung frias. She has diminished breath sounds diffusely. Reviewed her medications and lab results. Internal Medicine: Result - Labs CBC & Chem 7: 08/12/16 04:40 08/11/16 03:15 Labs: Short CBC 08/12/16 Range/Units 04:40 WBC 11.8 H (4.3-11.1) K/mcL Hgb 10.0 L (11.5-15.4) g/dL Hct 33.0 L (35.3-44.9) % Plt Count 156 (140-400) K/mcL Neutrophils # 9.8 H (1.6-8.9) K/mcL - ABG Interpretation ABG results: ABG ABG pH 7.35 pH Units (7.32-7.45) 04/07/17 00:13 ABG pCO2 61 mmHg (35-45) H 08/12/16 00:13 ABG pO2 48 mmHg (85-104) L* 08/12/16 00:13 ABG O2 Saturation 81 % (95-98) L 08/12/16 00:13 PT/INR, D-dimer PT 18.8 Seconds (9.4-12.1) H 08/12/16 04:40 Consult Discharge Plan - Plan Referrals: NO,PCP [Primary Care Provider] - 1 week
[2016-08-12] MEDS: *HR* Warfarin 2 MG TABLET PO SCH (13:52)
[2016-08-12 17:56] LABS: ABG PCO2 80 mmHg (35-45); ABG PH 7.28 pH Units (7.32-7.45); ABG PO2 102 mmHg (85-104)
[2016-08-12 17:57] LABS: ABG Base Excess 10.5 mEq/L (-2.0 to 3.0); ABG HCO3 37.3 mEQ/L (21-27); ABG Oxygen Saturation 97 % (95-98); ABG TCO2 39.8 mEq/L (20-26)
[2016-08-12 17:58] LABS: Blood Gas FiO2 40 %; Blood Gas Liter Flow 5 L/MIN
[2016-08-12 19:58] LABS: Blood Gas BiPAP(E) 6 cm H2O; Blood Gas BiPAP(I) 12 cm H2O; Blood Gas FiO2 30 %; Blood Gas Respiration Rate 12
[2016-08-12 20:02] LABS: ABG PH 7.31 pH Units (7.32-7.45)
[2016-08-12 20:05] LABS: ABG HCO3 35.8 mEQ/L (21-27); ABG PCO2 72 mmHg (35-45); ABG PO2 62 mmHg (85-104)
[2016-08-12 20:06] LABS: ABG Base Excess 9.5 mEq/L (-2.0 to 3.0); ABG Oxygen Saturation 87 % (95-98)
[2016-08-12] MEDS: Azithromycin 500 MG in D5% in Water 250 ML IVPB SCH (20:51)
[2016-08-12] MEDS: CefTRIAXone 1,000 MG in D5% in Water (Mini-Bag+) 100 ML IVPB SCH (22:00)
[2016-08-13 05:43] LABS: Basophils % 0.3 %; Eosinophils # 0.1 K/mcL (0.0-0.6); Eosinophils % 0.6 %; Hematocrit 30.1 % (35.3-44.9); Immature Granulocytes % 0.7 % (0-4); Lymphocytes # 0.8 K/mcL (0.6-4.6); Lymphocytes % 7.9 %; Mean Corpuscular HGB Conc 29.9 g/dL (31.6-35.5); Mean Corpuscular Hemoglobin 26.1 pg (28.0-33.3); Mean Corpuscular Volume 87.2 fL (83.0-100.0); Mean Platelet Volume 10.5 fL (9.4-12.4); Monocytes # 1.1 K/mcL (0.0-1.3); Monocytes % 10.2 %; Neutrophils # 8.5 K/mcL (1.6-8.9); Platelet Count 175 K/mcL (140-400); Red Blood Count 3.45 M/mcL (3.82-4.97); Red Cell Distribution Width 17.9 % (11.5-14.5); Segmented Neutrophils % 80.3 %
[2016-08-13 06:09] LABS: Albumin 2.9 g/dL (3.5-5.0); Albumin/Globulin Ratio 0.9 (1.1-2.2); Bilirubin,Total 0.7 mg/dL (0.2-1.2); Calcium 9.5 mg/dL (8.6-10.8); Globulin 3.3 g/dL (2.4-3.5); Potassium 4.7 mEq/L (3.5-4.5); Total Protein 6.2 g/dL (6.0-8.3)
[2016-08-13] MEDS: Ascorbic Acid 500 MG TABLET PO SCH (06:52)
[2016-08-13] MEDS: *HR* Glimepiride 2 MG TABLET PO SCH (08:58)
[2016-08-13] MEDS: Folic Acid 1 MG TABLET PO SCH (09:19)
[2016-08-13] MEDS: Bumetanide 1 MG TABLET PO SCH (09:19)
[2016-08-13] MEDS: Isosorbide MONOnitrate (24 HR) 60 MG TAB.ER.24H PO SCH (09:19)
[2016-08-13] MEDS: Lactobacillus 1 EACH CAP.SPRINK PO SCH ×2 (09:19→22:24)
[2016-08-13] MEDS: Cyanocobalamin (B-12) 1,000 MCG TABLET PO SCH (09:20)
[2016-08-13] MEDS: *HR* Digoxin 0.125 MG TABLET PO SCH (09:22)
--- NOTE | 2016-08-13 09:59 | Internal Med Progress Note ---
Date of Encounter: 08/13/16 Time of Encounter: 09:50 - Assessment and plan (1) Bronchitis Current Visit: No Status: Acute Assessment and plan: August 12. Will repeat chest CT since I am suspicious she has pneumonia. We will order viral respiratory panel and continue IV antibiotics with lactobacillus. August 13. CT scan showed bibasilar pneumonia. She will continue Rocephin and Zithromax with lactobacillus. Viral respiratory panel is pending (2) CKD (chronic kidney disease), stage III Current Visit: No Status: Chronic Assessment and plan: August 12. Continue to monitor renal indices. (3) Atrial fibrillation Current Visit: No Status: Chronic Assessment and plan: August 12. Continue Coumadin and monitor pro time Qualifiers: Atrial fibrillation type: chronic Qualified Code(s): I48.2 - Chronic atrial fibrillation (4) Anemia Current Visit: No Status: Acute Assessment and plan: August 12. Continue ferrous sulfate with vitamin C Qualifiers: Anemia type: unspecified type Qualified Code(s): D64.9 - Anemia, unspecified (5) Hyperuricemia Current Visit: No Status: Chronic Assessment and plan: August 12. Continue allopurinol - Subjective Interval history: August 12. She has no new complaints. She states she is still significantly dyspneic. August 13. She has no new complaints. She became more lethargic yesterday after being placed on higher flow oxygen. Blood gas showed hypoventilation. She was placed then on BiPAP with improvement documented. She is now on lower flow oxygen. - Constitutional Vitals: Temp Pulse Resp BP Pulse Ox 98.4 F 88 20 134/65 91 08/13/16 08:30 08/13/16 08:30 08/13/16 08:30 08/13/16 08:30 08/13/16 09:02 Exam: She is lethargic but awakens and answers a few questions. Her respirations are less labored than yesterday. Lungs showed no wheezes crackles or rhonchi anteriorly. Heart is irregularly irregular. Extremities show trace edema bilateral in the dorsum of the feet and lower anterior shins. I reviewed her medications and lab results. Internal Medicine: Result - Labs CBC & Chem 7: 08/13/16 05:05 08/13/16 05:05 Labs: Short CBC 08/13/16 Range/Units 05:05 WBC 10.6 (4.3-11.1) K/mcL Hgb 9.0 L (11.5-15.4) g/dL Hct 30.1 L (35.3-44.9) % Plt Count 175 (140-400) K/mcL Neutrophils # 8.5 (1.6-8.9) K/mcL BMP 08/13/16 05:05 Sodium 144 Potassium 4.7 H Chloride 101 Carbon Dioxide 34 H BUN 47 H Creatinine 1.45 H Glucose 43 L Calcium 9.5 Liver Function 08/13/16 Range/Units 05:05 Total Bilirubin 0.7 (0.2-1.2) mg/dL AST 15 (5-34) Units/L ALT 13 (0-55) Units/L Alkaline Phosphatase 154 H (38-126) Units/L Albumin 2.9 L (3.5-5.0) g/dL - ABG Interpretation ABG results: ABG ABG pH 7.31 pH Units (7.32-7.45) L 08/12/16 19:50 ABG pCO2 72 mmHg (35-45) H* 08/12/16 19:50 ABG pO2 62 mmHg (85-104) L 08/12/16 19:50 ABG O2 Saturation 87 % (95-98) L 08/12/16 19:50 PT/INR, D-dimer PT 18.8 Seconds (9.4-12.1) H 08/12/16 04:40 Consult Discharge Plan - Plan Referrals: NO,PCP [Primary Care Provider] - 1 week
[2016-08-13] MEDS: Cholecalciferol (D-3) 1,000 UNIT TABLET PO SCH (12:54)
[2016-08-13] MEDS: *HR* Warfarin 2 MG TABLET PO SCH (17:39)
[2016-08-13] MEDS: Azithromycin 500 MG in D5% in Water 250 ML IVPB SCH (18:18)
[2016-08-13] MEDS: CefTRIAXone 1,000 MG in D5% in Water (Mini-Bag+) 100 ML IVPB SCH (22:06)
[2016-08-14 05:29] LABS: Basophils % 0.5 %; Eosinophils # 0.1 K/mcL (0.0-0.6); Eosinophils % 1.5 %; Hematocrit 30.6 % (35.3-44.9); Hemoglobin 9.2 g/dL (11.5-15.4); Immature Granulocytes % 0.5 % (0-4); Lymphocytes # 0.8 K/mcL (0.6-4.6); Lymphocytes % 8.8 %; Mean Corpuscular HGB Conc 30.1 g/dL (31.6-35.5); Mean Corpuscular Hemoglobin 26.1 pg (28.0-33.3); Mean Corpuscular Volume 86.7 fL (83.0-100.0); Mean Platelet Volume 9.6 fL (9.4-12.4); Monocytes # 0.8 K/mcL (0.0-1.3); Monocytes % 9.3 %; Neutrophils # 6.9 K/mcL (1.6-8.9); Platelet Count 144 K/mcL (140-400); Red Blood Count 3.53 M/mcL (3.82-4.97); Red Cell Distribution Width 17.7 % (11.5-14.5); Segmented Neutrophils % 79.4 %
[2016-08-14 05:33] LABS: Prothrombin Time 22.4 Seconds (9.4-12.1)
[2016-08-14 05:43] LABS: Calcium 9.4 mg/dL (8.6-10.8); Potassium 4.6 mEq/L (3.5-4.5)
[2016-08-14 05:51] LABS: Digoxin 1.3 ng/mL (0.8-2.0)
[2016-08-14] MEDS: Ascorbic Acid 500 MG TABLET PO SCH (07:41)
[2016-08-14] MEDS: *HR* Glimepiride 2 MG TABLET PO SCH (07:48)
[2016-08-14] MEDS: Bumetanide 1 MG TABLET PO SCH (08:12)
[2016-08-14] MEDS: Lactobacillus 1 EACH CAP.SPRINK PO SCH ×2 (08:13→21:51)
[2016-08-14] MEDS: Folic Acid 1 MG TABLET PO SCH (08:13)
[2016-08-14] MEDS: Cholecalciferol (D-3) 1,000 UNIT TABLET PO SCH (08:15)
[2016-08-14] MEDS: Isosorbide MONOnitrate (24 HR) 60 MG TAB.ER.24H PO SCH (08:16)
[2016-08-14] MEDS: *HR* Digoxin 0.125 MG TABLET PO SCH (08:18)
[2016-08-14] MEDS: Cyanocobalamin (B-12) 1,000 MCG TABLET PO SCH (08:20)
--- NOTE | 2016-08-14 09:27 | Internal Med Progress Note ---
Date of Encounter: 08/14/16 Time of Encounter: 09:20 - Assessment and plan (1) Bronchitis Current Visit: No Status: Acute Assessment and plan: August 12. Will repeat chest CT since I am suspicious she has pneumonia. We will order viral respiratory panel and continue IV antibiotics with lactobacillus. August 13. CT scan showed bibasilar pneumonia. She will continue Rocephin and Zithromax with lactobacillus. Viral respiratory panel is pending August 14. Continue Rocephin, Zithromax, and lactobacillus. Viral respiratory panel is pending still. Recheck labs in a.m. (2) CKD (chronic kidney disease), stage III Current Visit: No Status: Chronic Assessment and plan: August 12. Continue to monitor renal indices. (3) Atrial fibrillation Current Visit: No Status: Chronic Assessment and plan: August 12. Continue Coumadin and monitor pro time Qualifiers: Atrial fibrillation type: chronic Qualified Code(s): I48.2 - Chronic atrial fibrillation (4) Anemia Current Visit: No Status: Acute Assessment and plan: August 12. Continue ferrous sulfate with vitamin C August 14. Recheck labs in a.m. Qualifiers: Anemia type: unspecified type Qualified Code(s): D64.9 - Anemia, unspecified (5) Hyperuricemia Current Visit: No Status: Chronic Assessment and plan: August 12. Continue allopurinol (6) Diabetes mellitus Current Visit: No Status: Chronic Assessment and plan: August 14. Blood sugars are well-controlled and occasionally borderline low. We will hold Amaryl and check hemoglobin A1c in a.m. with other labs. 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 She has no new complaints. She states she is still significantly dyspneic. August 13. She has no new complaints. She became more lethargic yesterday after being placed on higher flow oxygen. Blood gas showed hypoventilation. She was placed then on BiPAP with improvement documented. She is now on lower flow oxygen. August 14. She has no new complaints. - Constitutional Vitals: Temp Pulse Resp BP Pulse Ox 98.4 F 75 20 148/72 92 08/14/16 08:09 08/14/16 08:09 08/14/16 08:09 08/14/16 08:09 08/14/16 08:09 Exam: She is sitting in bed and appears comfortable. She answers a few questions but seems lethargic. She is wearing oxygen by nasal cannula. Heart is irregularly irregular. Lungs show very few rhonchi now. Extremities show trace edema at most. I reviewed her medications and lab results. Internal Medicine: Result - Labs CBC & Chem 7: 08/14/16 05:24 08/14/16 05:24 Labs: Short CBC 08/14/16 Range/Units 05:24 WBC 8.7 (4.3-11.1) K/mcL Hgb 9.2 L (11.5-15.4) g/dL Hct 30.6 L (35.3-44.9) % Plt Count 144 (140-400) K/mcL Neutrophils # 6.9 (1.6-8.9) K/mcL BMP 08/14/16 05:24 Sodium 143 Potassium 4.6 H Chloride 100 Carbon Dioxide 33 H BUN 51 H Creatinine 1.41 H Glucose 68 L Calcium 9.4 - ABG Interpretation ABG results: ABG ABG pH 7.31 pH Units (7.32-7.45) L 08/12/16 19:50 ABG pCO2 72 mmHg (35-45) H* 08/12/16 19:50 ABG pO2 62 mmHg (85-104) L 08/12/16 19:50 ABG O2 Saturation 87 % (95-98) L 08/12/16 19:50 PT/INR, D-dimer PT 22.4 Seconds (9.4-12.1) H 08/14/16 05:24 Consult Discharge Plan - Plan Referrals: NO,PCP [Primary Care Provider] - 1 week
[2016-08-14] MEDS: CefTRIAXone 1,000 MG in D5% in Water (Mini-Bag+) 100 ML IVPB SCH (17:19)
[2016-08-14] MEDS: *HR* Warfarin 2 MG TABLET PO SCH (17:19)
[2016-08-14] MEDS: Azithromycin 500 MG in D5% in Water 250 ML IVPB SCH (21:11)
[2016-08-15 06:38] LABS: Albumin 2.9 g/dL (3.5-5.0); Albumin/Globulin Ratio 0.8 (1.1-2.2); Bilirubin,Total 0.7 mg/dL (0.2-1.2); Calcium 9.8 mg/dL (8.6-10.8); Chol/HDL Ratio 3.7 (0-4.9); Globulin 3.6 g/dL (2.4-3.5); Potassium 4.5 mEq/L (3.5-4.5); Total Protein 6.5 g/dL (6.0-8.3)
[2016-08-15 08:30] LABS: Hemoglobin A1C 6.8 %
[2016-08-15] MEDS: Folic Acid 1 MG TABLET PO SCH (10:02)
[2016-08-15] MEDS: Bumetanide 1 MG TABLET PO SCH (10:02)
[2016-08-15] MEDS: Lactobacillus 1 EACH CAP.SPRINK PO SCH ×2 (10:02→20:58)
[2016-08-15] MEDS: Isosorbide MONOnitrate (24 HR) 60 MG TAB.ER.24H PO SCH (10:11)
[2016-08-15] MEDS: Ascorbic Acid 500 MG TABLET PO SCH (10:11)
[2016-08-15] MEDS: Cholecalciferol (D-3) 1,000 UNIT TABLET PO SCH ×2 (10:12→10:37)
[2016-08-15] MEDS: Cyanocobalamin (B-12) 1,000 MCG TABLET PO SCH (10:12)
[2016-08-15] MEDS: *HR* Digoxin 0.125 MG TABLET PO SCH (10:17)
--- NOTE | 2016-08-15 15:32 | Discharge Summary ---
Date of Encounter: 08/15/16 Time of Encounter: 15:20 - Discharge Diagnosis (1) Pneumonia Priority: Primary Status: Acute Qualifiers: Pneumonia type: due to unspecified organism Laterality: bilateral Lung location: lower lobe of lung Qualified Code(s): J18.9 - Pneumonia, unspecified organism (2) CKD (chronic kidney disease), stage III Priority: Secondary Status: Chronic (3) Atrial fibrillation Priority: Secondary Status: Chronic Qualifiers: Atrial fibrillation type: chronic Qualified Code(s): I48.2 - Chronic atrial fibrillation (4) Anemia Priority: Secondary Status: Acute Qualifiers: Anemia type: unspecified type Qualified Code(s): D64.9 - Anemia, unspecified (5) Hyperuricemia Priority: Secondary Status: Chronic (6) Diabetes mellitus Priority: Secondary Status: Chronic Qualifiers: Diabetes mellitus type: type 2 Diabetes mellitus complication status: with kidney complications Diabetes mellitus complication detail: with chronic kidney disease Diabetes mellitus chcf insulin use: with chcf use Chronic kidney disease stage: stage 3 (moderate) Qualified Code(s): E11.22 - Type 2 diabetes mellitus with diabetic chronic kidney disease; N18.3 - Chronic kidney disease, stage 3 (moderate); Z79.4 - intermediate (current) use of insulin - Discharge Medications Home Medications: Losartan [Cozaar] 100 mg PO HS 12/20/14 [History] Ergocalciferol (VITAMIN D2) [Vitamin D2 (50,000 UNIT)] 50,000 unit PO QWEEK [History] Warfarin [Coumadin] 3.5 mg PO DAILY 05/22/15 [History] Folic Acid 1 mg PO DAILY #90 tablet 08/06/15 [Rx] Carvedilol [Coreg] 25 mg PO BID 08/18/15 [History] Simvastatin [Zocor] 10 mg PO HS 08/18/15 [History] Cyanocobalamin (B-12) [Vitamin B12] 500 mcg PO DAILY tablet 06/10/16 [Rx] Glimepiride [Amaryl] 1 mg PO DAILY #30 tablet 06/10/16 [Rx] Isosorbide MONOnitrate (24 HR) [Imdur] 120 mg PO DAILY #60 tab.er.24h 06/10/16 [ Rx] Nitroglycerin [Nitrostat] 0.4 mg SL PRN PRN #1 vial 06/10/16 [Rx] HydrALAZINE 25 mg PO Q8HR 08/02/16 [History] Allopurinol [Zyloprim 300 MG] 300 mg PO DAILY #30 tablet 08/10/16 [Rx] Ascorbic Acid [Vitamin C] 500 mg PO DAILY #30 tablet 08/10/16 [Rx] Bumetanide [Bumex] 1.5 mg PO DAILY #45 tablet 08/10/16 [Rx] Digoxin [Lanoxin] 0.125 mg PO DAILY #30 tablet 08/10/16 [Rx] Ferrous Sulfate 325 mg PO DAILY #30 tablet 08/10/16 [Rx] Azithromycin [Zithromax] 500 mg IVPB Q24H vial 08/15/16 [Rx] CefTRIAXone [Rocephin] 1,000 mg IVPB Q24H vial 08/15/16 [Rx] Lactobacillus [Culturelle] 1 each PO BID cap.sprink 08/15/16 [Rx] Warfarin [Coumadin] 4 mg PO 1800 tablet 08/15/16 [Rx] Allergies/Adverse Reactions: Allergies No Known Allergies Allergy (Verified 08/07/16 18:53) Date of admission: 08/12/16 15:47 Primary care physician: Shira Plummer [employer]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 Beebe is a 71 year old female who came to emergency room complaining of dyspnea. She was discharged 08/10/2016 from [facility] after an 08/08/2016 admission for dyspnea. Chest CT during the hospitalization showed possible mild pulmonary edema with viral infection/early pneumonitis considered less likely. She was not discharged home on antibiotics because of probable viral infection and normal WBC. When she returned to emergency room WBC had risen slightly to 11.6 with further left shift. She was admitted to [facility] floor for ongoing care needs. Initial orders were written by the emergency room physician. I saw her on August 11 and performed a history and physical. She was started on IV antibiotics. Repeat CT of chest was done and showed bibasilar pneumonia. She had clinical improvement with WBC decreasing to 8.7 with 79.4% segs on August 14. She did have periods of lethargy and required occasional BiPAP for mild respiratory insufficiency. She will continue to be monitored in swing bed. Her renal indices remained stable during hospitalization. She continued on Coumadin. Her dose will be adjusted as needed to maintain pro times in therapeutic range. She continued ferrous sulfate with vitamin C for anemia. On August 15 arrangements were completed for her to be discharged to swing bed. She will continue to receive therapy prior to returning to independent living at home. - Time Spent with Patient Total time spent providing and/or coordinating discharge services: - Constitutional Vitals: Temp Pulse Resp BP Pulse Ox 98.3 F 73 24 146/68 94 08/15/16 14:42 08/15/16 14:42 08/15/16 14:42 08/15/16 14:42 08/15/16 14:42
[2016-08-15] MEDS: CefTRIAXone 1,000 MG in D5% in Water (Mini-Bag+) 100 ML IVPB SCH (17:19)
[2016-08-15] MEDS: *HR* Warfarin 2 MG TABLET PO SCH (17:19)
[2016-08-15] MEDS: Azithromycin 500 MG in D5% in Water 250 ML IVPB SCH (18:12)
[2016-08-16 10:32] VITALS: BP 135/68
[2016-08-18 14:39] LABS: Influenza A PCR Body Fluid NOT DETECTED; Influenza B PCR Body Fluid NOT DETECTED; RSV PCR Body Fluid NOT DETECTED
== END 2016-08-15 23:17 | disposition other institution (70) | DRG 194 ==
LOC: INPPIK 01:09 → EMEROOPIK 01:09 → INPPIK 03:56
PROVIDERS: ADMIT Internal Medicine; ATTEND Internal Medicine

== ENCOUNTER 2016-08-15 20:58 | Inpatient (IN) ==
[2016-08-16] MEDS ORDERED: Nitroglycerin 0.4 MG TAB.SUBL SL PRN (01:56)
[2016-08-16] MEDS ORDERED: Azithromycin 500 MG VIAL IVPB SCH (02:00)
[2016-08-16] MEDS ORDERED: CefTRIAXone 1,000 MG VIAL IVPB SCH (02:00)
[2016-08-16 06:35] LABS: Basophils % 0.4 %; Eosinophils # 0.2 K/mcL (0.0-0.6); Hematocrit 29.8 % (35.3-44.9); Hemoglobin 9.2 g/dL (11.5-15.4); Immature Granulocytes % 0.5 % (0-4); Lymphocytes # 0.9 K/mcL (0.6-4.6); Lymphocytes % 11.1 %; Mean Corpuscular HGB Conc 30.9 g/dL (31.6-35.5); Mean Corpuscular Hemoglobin 25.8 pg (28.0-33.3); Mean Corpuscular Volume 83.7 fL (83.0-100.0); Mean Platelet Volume 10.4 fL (9.4-12.4); Monocytes # 0.6 K/mcL (0.0-1.3); Monocytes % 8.1 %; Neutrophils # 6.1 K/mcL (1.6-8.9); Platelet Count 183 K/mcL (140-400); Red Blood Count 3.56 M/mcL (3.82-4.97); Red Cell Distribution Width 17.7 % (11.5-14.5); Segmented Neutrophils % 77.9 %
[2016-08-16] MEDS: Ascorbic Acid 500 MG TABLET PO SCH (06:35)
[2016-08-16 06:41] LABS: INR 2.7; Prothrombin Time 29.7 Seconds (9.4-12.1)
[2016-08-16 06:43] LABS: Activated Partial Thrombo Time 30.2 Seconds (26.0-36.0)
[2016-08-16 06:51] LABS: Calcium 9.6 mg/dL (8.6-10.8); Potassium 4.3 mEq/L (3.5-4.5)
[2016-08-16] MEDS: Bumetanide 1 MG TABLET PO SCH (08:29)
[2016-08-16] MEDS: Isosorbide MONOnitrate (24 HR) 60 MG TAB.ER.24H PO SCH (08:30)
[2016-08-16] MEDS: *HR* Digoxin 0.125 MG TABLET PO SCH (08:30)
[2016-08-16] MEDS: Folic Acid 1 MG TABLET PO SCH (08:30)
[2016-08-16] MEDS: Lactobacillus 1 EACH CAP.SPRINK PO SCH ×2 (08:30→20:51)
[2016-08-16] MEDS: Cyanocobalamin (B-12) 1,000 MCG TABLET PO SCH (08:31)
[2016-08-16] MEDS: *HR* Glimepiride 2 MG TABLET PO SCH ×2 (08:59→12:34)
--- NOTE | 2016-08-16 16:45 | Internal Med Progress Note ---
Date of Encounter: 08/16/16 Time of Encounter: 16:35 - Assessment and plan (1) Pneumonia Current Visit: No Status: Acute Assessment and plan: August 16. Continue Rocephin, Zithromax, and lactobacillus. Qualifiers: Pneumonia type: due to unspecified organism Laterality: bilateral Lung location: lower lobe of lung Qualified Code(s): J18.9 - Pneumonia, unspecified organism (2) CKD (chronic kidney disease), stage III Current Visit: No Status: Chronic Assessment and plan: August 16. Continue to monitor renal indices. (3) Diabetes mellitus Current Visit: No Status: Chronic Assessment and plan: August 16. Continue Amaryl and Accu-Cheks with SSI. Qualifiers: Diabetes mellitus type: type 2 Diabetes mellitus complication status: with kidney complications Diabetes mellitus complication detail: with chronic kidney disease Diabetes mellitus intermodal dispatcher insulin use: with intermodal dispatcher use Chronic kidney disease stage: stage 3 (moderate) Qualified Code(s): E11.22 - Type 2 diabetes mellitus with diabetic chronic kidney disease; N18.3 - Chronic kidney disease, stage 3 (moderate); Z79.4 - senior care (current) use of insulin (4) Atrial fibrillation Current Visit: No Status: Chronic Assessment and plan: August 16. Continue Coumadin and monitor pro time Qualifiers: Atrial fibrillation type: chronic Qualified Code(s): I48.2 - Chronic atrial fibrillation (5) Anemia Current Visit: No Status: Acute Assessment and plan: August 16. Continue ferrous sulfate with vitamin C. Qualifiers: Anemia type: iron deficiency Iron deficiency anemia type: unspecified iron deficiency Qualified Code(s): D50.9 - Iron deficiency anemia, unspecified (6) Hyperuricemia Current Visit: No Status: Chronic Assessment and plan: August 16. Continue allopurinol. - Subjective Interval history: July 16. She was hospitalized in the acute care August 11- after presenting with dyspnea. Chest CT showed bibasilar pneumonia. She was given Rocephin, Zithromax, and lactobacillus. A viral respiratory panel was ordered but results were pending at time of discharge into swing bed. She was discharged to swing bed for ongoing IV antibiotics and therapy interventions. She has no new complaints today. - Constitutional Vitals: Temp Pulse Resp BP Pulse Ox 98.3 F 73 20 146/71 96 08/16/16 16:38 08/16/16 16:38 08/16/16 16:38 08/16/16 16:38 08/16/16 16:38 Exam: She is resting comfortably in bed. She is more awake and alert and does not appear dyspneic. Heart is irregularly irregular. Lungs are clear anteriorly. Extremities show no pitting edema. I reviewed her medications and lab results. Internal Medicine: Result - Labs CBC & Chem 7: 08/16/16 06:15 08/16/16 06:15 Labs: Short CBC 08/16/16 Range/Units 06:15 WBC 7.9 (4.3-11.1) K/mcL Hgb 9.2 L (11.5-15.4) g/dL Hct 29.8 L (35.3-44.9) % Plt Count 183 (140-400) K/mcL Neutrophils # 6.1 (1.6-8.9) K/mcL BMP 08/16/16 06:15 Sodium 146 H Potassium 4.3 Chloride 100 Carbon Dioxide 35 H BUN 43 H Creatinine 1.19 H Glucose 110 H Calcium 9.6 - ABG Interpretation ABG results: PT/INR, D-dimer PT 29.7 Seconds (9.4-12.1) H 08/16/16 06:15 Consult Discharge Plan - Plan Referrals: Mario De León MD [Primary Care Provider] - 1 week
[2016-08-16] MEDS: *HR* Warfarin 2 MG TABLET PO SCH (17:02)
[2016-08-16] MEDS: CefTRIAXone 1,000 MG in D5% in Water (Mini-Bag+) 100 ML IVPB SCH (17:03)
[2016-08-16] MEDS: Azithromycin 500 MG in D5% in Water 250 ML IVPB SCH (18:42)
[2016-08-17] MEDS: Ascorbic Acid 500 MG TABLET PO SCH (06:33)
[2016-08-17] MEDS: Bumetanide 1 MG TABLET PO SCH (07:53)
[2016-08-17] MEDS: *HR* Glimepiride 2 MG TABLET PO SCH (07:53)
[2016-08-17] MEDS: Cyanocobalamin (B-12) 1,000 MCG TABLET PO SCH (07:54)
[2016-08-17] MEDS: Folic Acid 1 MG TABLET PO SCH (07:54)
[2016-08-17] MEDS: Lactobacillus 1 EACH CAP.SPRINK PO SCH ×2 (07:54→20:57)
[2016-08-17] MEDS: Isosorbide MONOnitrate (24 HR) 60 MG TAB.ER.24H PO SCH (07:54)
[2016-08-17] MEDS: *HR* Digoxin 0.125 MG TABLET PO SCH (07:56)
[2016-08-17] MEDS ORDERED: Cholecalciferol (D-3) 1,000 UNIT TABLET PO SCH (09:00)
[2016-08-17] MEDS: Cholecalciferol (D-3) 1,000 UNIT TABLET PO SCH (13:07)
[2016-08-17] MEDS: CefTRIAXone 1,000 MG in D5% in Water (Mini-Bag+) 100 ML IVPB SCH (16:51)
[2016-08-17] MEDS: *HR* Warfarin 2 MG TABLET PO SCH (17:55)
[2016-08-17] MEDS: Azithromycin 500 MG in D5% in Water 250 ML IVPB SCH (17:56)
[2016-08-17] MEDS: Albuterol 2.5 MG/3 ML NEBULIZER IH PRN (21:46)
--- NOTE | 2016-08-18 11:27 | Internal Med Progress Note ---
Date of Encounter: 08/18/16 Time of Encounter: 11:20 - Assessment and plan (1) Pneumonia Current Visit: No Status: Acute Assessment and plan: August 16. Continue Rocephin, Zithromax, and lactobacillus. August 18. Will discontinue antibiotics and lactobacillus since she has completed a one-week course. Qualifiers: Pneumonia type: due to unspecified organism Laterality: bilateral Lung location: lower lobe of lung Qualified Code(s): J18.9 - Pneumonia, unspecified organism (2) CKD (chronic kidney disease), stage III Current Visit: No Status: Chronic Assessment and plan: August 16. Continue to monitor renal indices. (3) Diabetes mellitus Current Visit: No Status: Chronic Assessment and plan: August 16. Continue Amaryl and Accu-Cheks with SSI. Qualifiers: Diabetes mellitus type: type 2 Diabetes mellitus complication status: with kidney complications Diabetes mellitus complication detail: with chronic kidney disease Diabetes mellitus joint terminal attack controller insulin use: with residential use Chronic kidney disease stage: stage 3 (moderate) Qualified Code(s): E11.22 - Type 2 diabetes mellitus with diabetic chronic kidney disease; N18.3 - Chronic kidney disease, stage 3 (moderate); Z79.4 - [facility] (current) use of insulin (4) Atrial fibrillation Current Visit: No Status: Chronic Assessment and plan: August 16. Continue Coumadin and monitor pro time Qualifiers: Atrial fibrillation type: chronic Qualified Code(s): I48.2 - Chronic atrial fibrillation (5) Anemia Current Visit: No Status: Acute Assessment and plan: August 16. Continue ferrous sulfate with vitamin C. Qualifiers: Anemia type: iron deficiency Iron deficiency anemia type: unspecified iron deficiency Qualified Code(s): D50.9 - Iron deficiency anemia, unspecified (6) Hyperuricemia Current Visit: No Status: Chronic Assessment and plan: August 16. Continue allopurinol. - Subjective Interval history: August 16. She was hospitalized in the acute care August 11- after presenting with dyspnea. Chest CT showed bibasilar pneumonia. She was given Rocephin, Zithromax, and lactobacillus. A viral respiratory panel was ordered but results were pending at time of discharge into swing bed. She was discharged to swing bed for ongoing IV antibiotics and therapy interventions. She has no new complaints today. August 18. She has no new complaints and feels better. - Constitutional Vitals: Temp Pulse Resp BP Pulse Ox 98.1 F 63 26 130/53 94 08/18/16 06:33 08/18/16 06:33 08/18/16 06:33 08/18/16 06:33 08/18/16 06:33 Exam: She is sitting in a chair at bedside and appears comfortable. Lungs show very few rhonchi. There is no expiratory wheezing heard. Extremities show no edema. I reviewed her medications and lab results. Internal Medicine: Result - Labs CBC & Chem 7: 08/16/16 06:15 08/16/16 06:15 - ABG Interpretation ABG results: PT/INR, D-dimer PT 33.0 Seconds (9.4-12.1) H 08/17/16 04:40 Consult Discharge Plan - Plan Referrals: Mario De León MD [Primary Care Provider] - 1 week
[2016-08-18] MEDS: Bumetanide 1 MG TABLET PO SCH (13:20)
[2016-08-18] MEDS: Cholecalciferol (D-3) 1,000 UNIT TABLET PO SCH (13:20)
[2016-08-18] MEDS: *HR* Glimepiride 2 MG TABLET PO SCH (13:21)
[2016-08-18] MEDS: *HR* Digoxin 0.125 MG TABLET PO SCH (13:21)
[2016-08-18] MEDS: Cyanocobalamin (B-12) 1,000 MCG TABLET PO SCH (13:22)
[2016-08-18] MEDS: Isosorbide MONOnitrate (24 HR) 60 MG TAB.ER.24H PO SCH (13:22)
[2016-08-18] MEDS: Folic Acid 1 MG TABLET PO SCH (13:23)
[2016-08-18] MEDS: Ascorbic Acid 500 MG TABLET PO SCH (13:23)
[2016-08-18] MEDS: *HR* Warfarin 2 MG TABLET PO SCH (17:38)
[2016-08-19 06:17] LABS: Basophils % 0.5 %; Eosinophils # 0.2 K/mcL (0.0-0.6); Eosinophils % 2.6 %; Hematocrit 29.2 % (35.3-44.9); Hemoglobin 8.7 g/dL (11.5-15.4); Immature Granulocytes % 0.9 % (0-4); Lymphocytes # 1.1 K/mcL (0.6-4.6); Lymphocytes % 17.9 %; Mean Corpuscular HGB Conc 29.8 g/dL (31.6-35.5); Mean Corpuscular Hemoglobin 25.2 pg (28.0-33.3); Mean Corpuscular Volume 84.6 fL (83.0-100.0); Mean Platelet Volume 11.3 fL (9.4-12.4); Monocytes # 0.4 K/mcL (0.0-1.3); Monocytes % 6.5 %; Neutrophils # 4.2 K/mcL (1.6-8.9); Platelet Count 183 K/mcL (140-400); Red Blood Count 3.45 M/mcL (3.82-4.97); Red Cell Distribution Width 18.3 % (11.5-14.5); Segmented Neutrophils % 71.6 %
[2016-08-19 06:22] LABS: INR 4.1
[2016-08-19] MEDS: Ascorbic Acid 500 MG TABLET PO SCH (06:31)
[2016-08-19 06:32] LABS: Prothrombin Time 45.7 Seconds (9.4-12.1)
[2016-08-19 06:33] LABS: Calcium 9.4 mg/dL (8.6-10.8); Potassium 4.6 mEq/L (3.5-4.5)
[2016-08-19 07:08] LABS: Anisocytosis 1+ (Not Present); Ovalocytes 1+ (Not Present)
[2016-08-19] MEDS: Bumetanide 1 MG TABLET PO SCH (10:44)
[2016-08-19] MEDS: Folic Acid 1 MG TABLET PO SCH (10:45)
[2016-08-19] MEDS: *HR* Glimepiride 2 MG TABLET PO SCH (10:45)
[2016-08-19] MEDS: Cholecalciferol (D-3) 1,000 UNIT TABLET PO SCH (10:45)
[2016-08-19] MEDS: Isosorbide MONOnitrate (24 HR) 60 MG TAB.ER.24H PO SCH (10:45)
[2016-08-19] MEDS: *HR* Digoxin 0.125 MG TABLET PO SCH (10:45)
[2016-08-19] MEDS: Cyanocobalamin (B-12) 1,000 MCG TABLET PO SCH (10:45)
--- NOTE | 2016-08-19 11:28 | Internal Med Progress Note ---
Date of Encounter: 08/19/16 Time of Encounter: 11:20 - Assessment and plan (1) Pneumonia Current Visit: No Status: Acute Assessment and plan: August 16. Continue Rocephin, Zithromax, and lactobacillus. August 18. Will discontinue antibiotics and lactobacillus since she has completed a one-week course. August 19. Remain off antibiotics and lactobacillus. Continue Robitussin-DM. Qualifiers: Pneumonia type: due to unspecified organism Laterality: bilateral Lung location: lower lobe of lung Qualified Code(s): J18.9 - Pneumonia, unspecified organism (2) CKD (chronic kidney disease), stage III Current Visit: No Status: Chronic Assessment and plan: August 16. Continue to monitor renal indices. (3) Diabetes mellitus Current Visit: No Status: Chronic Assessment and plan: August 16. Continue Amaryl and Accu-Cheks with SSI. August 19. Will increase Amaryl to 2 mg daily since blood sugars are above desirable level. Qualifiers: Diabetes mellitus type: type 2 Diabetes mellitus complication status: with kidney complications Diabetes mellitus complication detail: with chronic kidney disease Diabetes mellitus intermodal dispatcher insulin use: with shelter use Chronic kidney disease stage: stage 3 (moderate) Qualified Code(s): E11.22 - Type 2 diabetes mellitus with diabetic chronic kidney disease; N18.3 - Chronic kidney disease, stage 3 (moderate); Z79.4 - [facility] (current) use of insulin (4) Atrial fibrillation Current Visit: No Status: Chronic Assessment and plan: August 16. Continue Coumadin and monitor pro time Qualifiers: Atrial fibrillation type: chronic Qualified Code(s): I48.2 - Chronic atrial fibrillation (5) Anemia Current Visit: No Status: Acute Assessment and plan: August 16. Continue ferrous sulfate with vitamin C. Qualifiers: Anemia type: iron deficiency Iron deficiency anemia type: unspecified iron deficiency Qualified Code(s): D50.9 - Iron deficiency anemia, unspecified (6) Hyperuricemia Current Visit: No Status: Chronic Assessment and plan: August 16. Continue allopurinol. August 19. We will check uric acid level in a.m. - Subjective Interval history: August 16. She was hospitalized in the acute care August 11- after presenting with dyspnea. Chest CT showed bibasilar pneumonia. She was given Rocephin, Zithromax, and lactobacillus. A viral respiratory panel was ordered but results were pending at time of discharge into swing bed. She was discharged to swing bed for ongoing IV antibiotics and therapy interventions. She has no new complaints today. August 18. She has no new complaints and feels better. August 19. She has no new complaints. She states she still has coughing. - Constitutional Vitals: Temp Pulse Resp BP Pulse Ox 98.2 F 53 20 110/54 96 08/19/16 07:12 08/19/16 07:12 08/19/16 07:12 08/19/16 07:12 08/19/16 07:12 Exam: She is sitting in a chair at bedside appears to be resting comfortably. Her heart is irregularly irregular. Extremities show no pitting edema. Lungs show no wheezes or rhonchi anteriorly. I reviewed her medications and lab results. Internal Medicine: Result - Labs CBC & Chem 7: 08/19/16 05:17 08/19/16 05:17 Labs: Short CBC 08/19/16 Range/Units 05:17 WBC 5.9 (4.3-11.1) K/mcL Hgb 8.7 L (11.5-15.4) g/dL Hct 29.2 L (35.3-44.9) % Plt Count 183 (140-400) K/mcL Neutrophils # 4.2 (1.6-8.9) K/mcL BMP 08/19/16 05:17 Sodium 145 Potassium 4.6 H Chloride 98 Carbon Dioxide 36 H BUN 44 H Creatinine 1.35 H Glucose 155 H Calcium 9.4 - ABG Interpretation ABG results: PT/INR, D-dimer PT 45.7 Seconds (9.4-12.1) H* 08/19/16 05:17 Consult Discharge Plan - Plan Referrals: Mario De León MD [Primary Care Provider] - 1 week
[2016-08-20] MEDS: Albuterol 2.5 MG/3 ML NEBULIZER IH PRN ×3 (03:56→15:53)
[2016-08-20 06:02] LABS: Basophils % 0.5 %; Eosinophils # 0.1 K/mcL (0.0-0.6); Eosinophils % 1.8 %; Hematocrit 28.3 % (35.3-44.9); Hemoglobin 8.8 g/dL (11.5-15.4); Immature Granulocytes % 1.1 % (0-4); Lymphocytes % 16.4 %; Mean Corpuscular HGB Conc 31.1 g/dL (31.6-35.5); Mean Corpuscular Volume 83.5 fL (83.0-100.0); Mean Platelet Volume 10.6 fL (9.4-12.4); Monocytes # 0.4 K/mcL (0.0-1.3); Monocytes % 6.7 %; Neutrophils # 4.5 K/mcL (1.6-8.9); Platelet Count 185 K/mcL (140-400); Red Blood Count 3.39 M/mcL (3.82-4.97); Red Cell Distribution Width 18.5 % (11.5-14.5); Segmented Neutrophils % 73.5 %
[2016-08-20 06:22] LABS: INR 3.8; Prothrombin Time 42.2 Seconds (9.4-12.1)
[2016-08-20 06:24] LABS: Uric Acid 3.9 mg/dL (2.6-6.0)
[2016-08-20 06:34] LABS: Digoxin 1.6 ng/mL (0.8-2.0)
[2016-08-20] MEDS: Ascorbic Acid 500 MG TABLET PO SCH (06:52)
[2016-08-20] MEDS: Lactobacillus 1 EACH CAP.SPRINK PO SCH (07:31)
[2016-08-20] MEDS: Cyanocobalamin (B-12) 1,000 MCG TABLET PO SCH (08:18)
[2016-08-20] MEDS: Isosorbide MONOnitrate (24 HR) 60 MG TAB.ER.24H PO SCH (08:19)
[2016-08-20] MEDS: *HR* Glimepiride 2 MG TABLET PO SCH (08:19)
[2016-08-20] MEDS: Cholecalciferol (D-3) 1,000 UNIT TABLET PO SCH (08:20)
[2016-08-20] MEDS: Folic Acid 1 MG TABLET PO SCH (08:20)
[2016-08-20] MEDS: Bumetanide 1 MG TABLET PO SCH (08:21)
[2016-08-20] MEDS: *HR* Digoxin 0.125 MG TABLET PO SCH (08:27)
[2016-08-20] MEDS: *HR* Warfarin 2 MG TABLET PO SCH (17:22)
[2016-08-21 06:07] LABS: INR 2.7; Prothrombin Time 30.4 Seconds (9.4-12.1)
[2016-08-21] MEDS: Ascorbic Acid 500 MG TABLET PO SCH (06:58)
[2016-08-21] MEDS: Albuterol 2.5 MG/3 ML NEBULIZER IH PRN ×3 (09:33→21:12)
[2016-08-21] MEDS: Cyanocobalamin (B-12) 1,000 MCG TABLET PO SCH (09:46)
[2016-08-21] MEDS: Folic Acid 1 MG TABLET PO SCH (09:47)
[2016-08-21] MEDS: Cholecalciferol (D-3) 1,000 UNIT TABLET PO SCH (09:47)
[2016-08-21] MEDS: *HR* Glimepiride 2 MG TABLET PO SCH (09:47)
[2016-08-21] MEDS: Bumetanide 1 MG TABLET PO SCH (10:11)
[2016-08-21] MEDS: *HR* Digoxin 0.125 MG TABLET PO SCH (10:12)
[2016-08-21] MEDS: Isosorbide MONOnitrate (24 HR) 60 MG TAB.ER.24H PO SCH (10:12)
[2016-08-21] MEDS: *HR* Warfarin 2 MG TABLET PO SCH (18:22)
[2016-08-21] MEDS ORDERED: *HR* Dextrose 50 % in Water (Syg) 50 ML SYRINGE IVP PRN (23:21)
[2016-08-21] MEDS ORDERED: D5% in Water 1,000 ML IVC PRN (23:21)
[2016-08-21] MEDS ORDERED: Dextrose Gel 15 GM PO PRN ×2 (23:21)
[2016-08-21] MEDS: Insulin LISPRO 300 UNITS/3 ML VIAL SQ SCH (23:49)
[2016-08-22] MEDS: Albuterol 2.5 MG/3 ML NEBULIZER IH PRN ×2 (00:40→21:29)
[2016-08-22] MEDS: Ascorbic Acid 500 MG TABLET PO SCH (08:16)
[2016-08-22] MEDS: Insulin LISPRO 300 UNITS/3 ML VIAL SQ SCH ×4 (08:18→21:01)
[2016-08-22] MEDS: Isosorbide MONOnitrate (24 HR) 60 MG TAB.ER.24H PO SCH (11:14)
[2016-08-22] MEDS: *HR* Digoxin 0.125 MG TABLET PO SCH (11:14)
[2016-08-22] MEDS: Cyanocobalamin (B-12) 1,000 MCG TABLET PO SCH (11:15)
[2016-08-22] MEDS: Cholecalciferol (D-3) 1,000 UNIT TABLET PO SCH (11:15)
[2016-08-22] MEDS: Folic Acid 1 MG TABLET PO SCH (11:15)
[2016-08-22] MEDS: Bumetanide 1 MG TABLET PO SCH (11:15)
[2016-08-22] MEDS: *HR* Glimepiride 2 MG TABLET PO SCH (11:15)
[2016-08-22] MEDS: *HR* Warfarin 2 MG TABLET PO SCH (16:54)
[2016-08-23] MEDS: Ascorbic Acid 500 MG TABLET PO SCH (05:47)
[2016-08-23] MEDS: Insulin LISPRO 300 UNITS/3 ML VIAL SQ SCH ×4 (07:18→20:40)
[2016-08-23] MEDS: Bumetanide 1 MG TABLET PO SCH (07:25)
[2016-08-23] MEDS: Cholecalciferol (D-3) 1,000 UNIT TABLET PO SCH (07:25)
[2016-08-23] MEDS: Folic Acid 1 MG TABLET PO SCH (07:26)
[2016-08-23] MEDS: Cyanocobalamin (B-12) 1,000 MCG TABLET PO SCH (07:26)
[2016-08-23] MEDS: Isosorbide MONOnitrate (24 HR) 60 MG TAB.ER.24H PO SCH (07:26)
[2016-08-23] MEDS: *HR* Glimepiride 2 MG TABLET PO SCH (07:26)
[2016-08-23] MEDS: *HR* Digoxin 0.125 MG TABLET PO SCH (07:26)
[2016-08-23] MEDS: Albuterol 2.5 MG/3 ML NEBULIZER IH PRN ×2 (10:51→21:59)
--- NOTE | 2016-08-23 14:49 | Internal Med Progress Note ---
Date of Encounter: 08/23/16 Time of Encounter: 14:40 - Assessment and plan (1) Pneumonia Current Visit: No Status: Acute Assessment and plan: August 16. Continue Rocephin, Zithromax, and lactobacillus. August 18. Will discontinue antibiotics and lactobacillus since she has completed a one-week course. August 19. Remain off antibiotics and lactobacillus. Continue Robitussin-DM. Qualifiers: Pneumonia type: due to unspecified organism Laterality: bilateral Lung location: lower lobe of lung Qualified Code(s): J18.9 - Pneumonia, unspecified organism (2) CKD (chronic kidney disease), stage III Current Visit: No Status: Chronic Assessment and plan: August 16. Continue to monitor renal indices. August 23. Recheck labs in a.m. (3) Diabetes mellitus Current Visit: No Status: Chronic Assessment and plan: August 16. Continue Amaryl and Accu-Cheks with SSI. August 19. Will increase Amaryl to 2 mg daily since blood sugars are above desirable level. August 23. Continue Amaryl at present dose. Qualifiers: Diabetes mellitus type: type 2 Diabetes mellitus complication status: with kidney complications Diabetes mellitus complication detail: with chronic kidney disease Diabetes mellitus intermediate accountant insulin use: with prison use Chronic kidney disease stage: stage 3 (moderate) Qualified Code(s): E11.22 - Type 2 diabetes mellitus with diabetic chronic kidney disease; N18.3 - Chronic kidney disease, stage 3 (moderate); Z79.4 - [facility] (current) use of insulin (4) Atrial fibrillation Current Visit: No Status: Chronic Assessment and plan: August 16. Continue Coumadin and monitor pro time Qualifiers: Atrial fibrillation type: chronic Qualified Code(s): I48.2 - Chronic atrial fibrillation (5) Anemia Current Visit: No Status: Acute Assessment and plan: August 16. Continue ferrous sulfate with vitamin C. August 23. Recheck labs in a.m. Qualifiers: Anemia type: iron deficiency Iron deficiency anemia type: unspecified iron deficiency Qualified Code(s): D50.9 - Iron deficiency anemia, unspecified (6) Hyperuricemia Current Visit: No Status: Chronic Assessment and plan: August 16. Continue allopurinol. August 19. We will check uric acid level in a.m. August 23. Uric acid level was 3.9. Continue present dose allopurinol - Subjective Interval history: August 16. She was hospitalized in the acute care August 11 after presenting with dyspnea. Chest CT showed bibasilar pneumonia. She was given Rocephin, Zithromax, and lactobacillus. A viral respiratory panel was ordered but results were pending at time of discharge into swing bed. She was discharged to swing bed for ongoing IV antibiotics and therapy interventions. She has no new complaints today. August 18. She has no new complaints and feels better. August 19. She has no new complaints. She states she still has coughing. August 23. She has no new complaints and feels generally well. - Constitutional Vitals: Temp Pulse Resp BP Pulse Ox 97.5 F L 53 24 110/60 93 08/23/16 06:41 08/23/16 06:41 08/23/16 10:51 08/23/16 06:41 08/23/16 10:51 Exam: She is sitting in a chair at bedside. Her feet are on the floor. I elevated them on a stool with a padded towel. Heart is irregularly irregular. Lungs are clear without wheezes or crackles. I reviewed her medications and lab results. Internal Medicine: Result - Labs CBC & Chem 7: 08/20/16 05:25 08/19/16 05:17 - ABG Interpretation ABG results: PT/INR, D-dimer PT 30.4 Seconds (9.4-12.1) H 08/21/16 04:35 Consult Discharge Plan - Plan Referrals: Mario De León MD [Primary Care Provider] - 1 week
[2016-08-23] MEDS: *HR* Warfarin 2 MG TABLET PO SCH (16:56)
[2016-08-24 05:58] LABS: Basophils % 0.6 %; Eosinophils # 0.1 K/mcL (0.0-0.6); Eosinophils % 2.4 %; Hematocrit 26.1 % (35.3-44.9); Hemoglobin 8.1 g/dL (11.5-15.4); Immature Granulocytes % 0.4 % (0-4); Lymphocytes # 1.1 K/mcL (0.6-4.6); Lymphocytes % 22.1 %; Mean Corpuscular Volume 83.9 fL (83.0-100.0); Mean Platelet Volume 10.9 fL (9.4-12.4); Monocytes # 0.5 K/mcL (0.0-1.3); Neutrophils # 3.3 K/mcL (1.6-8.9); Platelet Count 174 K/mcL (140-400); Red Blood Count 3.11 M/mcL (3.82-4.97); Red Cell Distribution Width 19.4 % (11.5-14.5); Segmented Neutrophils % 65.5 %
[2016-08-24] MEDS: Ascorbic Acid 500 MG TABLET PO SCH (06:03)
[2016-08-24 06:11] LABS: INR 2.2; Prothrombin Time 24.7 Seconds (9.4-12.1)
[2016-08-24 06:19] LABS: Calcium 9.1 mg/dL (8.6-10.8); Magnesium 2.4 mg/dL (1.6-2.6); Potassium 4.6 mEq/L (3.5-4.5)
[2016-08-24 06:49] LABS: Anisocytosis 1+ (Not Present)
[2016-08-24 06:50] LABS: Hypochromasia Present (Not Present); Ovalocytes 1+ (Not Present)
[2016-08-24] MEDS: Preparation H Ointment 30 GM TUBE RC PRN ×2 (06:50→14:30)
[2016-08-24] MEDS: Insulin LISPRO 300 UNITS/3 ML VIAL SQ SCH ×4 (07:52→20:18)
[2016-08-24] MEDS: *HR* Glimepiride 2 MG TABLET PO SCH (07:56)
[2016-08-24] MEDS: *HR* Digoxin 0.125 MG TABLET PO SCH (07:56)
[2016-08-24] MEDS: Bumetanide 1 MG TABLET PO SCH (07:56)
[2016-08-24] MEDS: Folic Acid 1 MG TABLET PO SCH (07:56)
[2016-08-24] MEDS: Cholecalciferol (D-3) 1,000 UNIT TABLET PO SCH (07:56)
[2016-08-24] MEDS: Cyanocobalamin (B-12) 1,000 MCG TABLET PO SCH (07:56)
[2016-08-24] MEDS: Isosorbide MONOnitrate (24 HR) 60 MG TAB.ER.24H PO SCH (07:57)
[2016-08-24] MEDS: Albuterol 2.5 MG/3 ML NEBULIZER IH PRN ×3 (09:36→22:30)
[2016-08-24] MEDS: *HR* Warfarin 2 MG TABLET PO SCH (17:38)
[2016-08-25] MEDS: Ascorbic Acid 500 MG TABLET PO SCH (06:12)
[2016-08-25] MEDS: Insulin LISPRO 300 UNITS/3 ML VIAL SQ SCH ×4 (08:30→20:46)
[2016-08-25] MEDS: Cyanocobalamin (B-12) 1,000 MCG TABLET PO SCH (08:32)
[2016-08-25] MEDS: Bumetanide 1 MG TABLET PO SCH (08:33)
[2016-08-25] MEDS: Isosorbide MONOnitrate (24 HR) 60 MG TAB.ER.24H PO SCH (08:34)
[2016-08-25] MEDS: *HR* Digoxin 0.125 MG TABLET PO SCH (08:34)
[2016-08-25] MEDS: Cholecalciferol (D-3) 1,000 UNIT TABLET PO SCH (08:34)
[2016-08-25] MEDS: Folic Acid 1 MG TABLET PO SCH (08:35)
[2016-08-25] MEDS: *HR* Glimepiride 2 MG TABLET PO SCH (08:35)
[2016-08-25] MEDS: Albuterol 2.5 MG/3 ML NEBULIZER IH PRN ×3 (09:51→21:08)
[2016-08-25] MEDS: *HR* Warfarin 2 MG TABLET PO SCH (17:15)
[2016-08-26] MEDS: Ascorbic Acid 500 MG TABLET PO SCH (06:14)
[2016-08-26] MEDS: Insulin LISPRO 300 UNITS/3 ML VIAL SQ SCH ×4 (08:16→21:20)
[2016-08-26] MEDS: Isosorbide MONOnitrate (24 HR) 60 MG TAB.ER.24H PO SCH (08:25)
[2016-08-26] MEDS: Cholecalciferol (D-3) 1,000 UNIT TABLET PO SCH (08:25)
[2016-08-26] MEDS: Folic Acid 1 MG TABLET PO SCH (08:25)
[2016-08-26] MEDS: *HR* Glimepiride 2 MG TABLET PO SCH (08:25)
[2016-08-26] MEDS: Cyanocobalamin (B-12) 1,000 MCG TABLET PO SCH (08:26)
[2016-08-26] MEDS: Bumetanide 1 MG TABLET PO SCH (08:26)
[2016-08-26] MEDS: *HR* Digoxin 0.125 MG TABLET PO SCH (08:29)
--- NOTE | 2016-08-26 10:17 | Internal Med Progress Note ---
Date of Encounter: 08/26/16 Time of Encounter: 10:10 - Assessment and plan (1) Pneumonia Current Visit: No Status: Acute Assessment and plan: August 16. Continue Rocephin, Zithromax, and lactobacillus. August 18. Will discontinue antibiotics and lactobacillus since she has completed a one-week course. August 19. Remain off antibiotics and lactobacillus. Continue Robitussin-DM. Qualifiers: Pneumonia type: due to unspecified organism Laterality: bilateral Lung location: lower lobe of lung Qualified Code(s): J18.9 - Pneumonia, unspecified organism (2) CKD (chronic kidney disease), stage III Current Visit: No Status: Chronic Assessment and plan: August 16. Continue to monitor renal indices. August 23. Recheck labs in a.m. August 26. Creatinine was 1.53 on 08/24/2016. (3) Diabetes mellitus Current Visit: No Status: Chronic Assessment and plan: August 16. Continue Amaryl and Accu-Cheks with SSI. August 19. Will increase Amaryl to 2 mg daily since blood sugars are above desirable level. August 23. Continue Amaryl at present dose. Qualifiers: Diabetes mellitus type: type 2 Diabetes mellitus complication status: with kidney complications Diabetes mellitus complication detail: with chronic kidney disease Diabetes mellitus prison insulin use: with branch manager use Chronic kidney disease stage: stage 3 (moderate) Qualified Code(s): E11.22 - Type 2 diabetes mellitus with diabetic chronic kidney disease; N18.3 - Chronic kidney disease, stage 3 (moderate); Z79.4 - [facility] (current) use of insulin (4) Atrial fibrillation Current Visit: No Status: Chronic Assessment and plan: August 16. Continue Coumadin and monitor pro time Qualifiers: Atrial fibrillation type: chronic Qualified Code(s): I48.2 - Chronic atrial fibrillation (5) Anemia Current Visit: No Status: Acute Assessment and plan: August 16. Continue ferrous sulfate with vitamin C. August 23. Recheck labs in a.m. August 26. Hemoglobin decreased to 8.1 on 08/24/2016. We will recheck labs in a.m. Qualifiers: Anemia type: iron deficiency Iron deficiency anemia type: unspecified iron deficiency Qualified Code(s): D50.9 - Iron deficiency anemia, unspecified (6) Hyperuricemia Current Visit: No Status: Chronic Assessment and plan: August 16. Continue allopurinol. August 19. We will check uric acid level in a.m. August 23. Uric acid level was 3.9. Continue present dose allopurinol - Subjective Interval history: August 16. She was hospitalized in the acute care August 11- after presenting with dyspnea. Chest CT showed bibasilar pneumonia. She was given Rocephin, Zithromax, and lactobacillus. A viral respiratory panel was ordered but results were pending at time of discharge into swing bed. She was discharged to swing bed for ongoing IV antibiotics and therapy interventions. She has no new complaints today. August 18. She has no new complaints and feels better. August 19. She has no new complaints. She states she still has coughing. August 23. She has no new complaints and feels generally well. August 26. She has no new complaints. She still has occasional cough but states it is improving. She states she feels she will be able to be discharged home tomorrow with home health services. - Constitutional Vitals: Temp Pulse Resp BP Pulse Ox 98.2 F 57 18 134/67 96 08/26/16 06:33 08/26/16 06:33 08/26/16 06:33 08/26/16 06:33 08/26/16 06:33 Exam: She is sitting comfortably in a chair at bedside. She had occasional cough during the visit. Her affect is bright and cheerful. She did not appear to be dyspneic. I reviewed her medications and lab results. Internal Medicine: Result - Labs CBC & Chem 7: 08/24/16 04:45 08/24/16 04:45 - ABG Interpretation ABG results: PT/INR, D-dimer PT 24.7 Seconds (9.4-12.1) H 08/24/16 04:45 Consult Discharge Plan - Plan Referrals: Mario De León MD [Primary Care Provider] - 1 week
[2016-08-26] MEDS: Albuterol 2.5 MG/3 ML NEBULIZER IH PRN (18:33)
[2016-08-26] MEDS: *HR* Warfarin 2 MG TABLET PO SCH (18:48)
[2016-08-27] MEDS: Ascorbic Acid 500 MG TABLET PO SCH (05:37)
[2016-08-27 05:42] LABS: Basophils % 0.4 %; Eosinophils # 0.1 K/mcL (0.0-0.6); Eosinophils % 3.1 %; Hematocrit 26.3 % (35.3-44.9); Hemoglobin 8.2 g/dL (11.5-15.4); Immature Granulocytes % 0.4 % (0-4); Lymphocytes % 22.5 %; Mean Corpuscular HGB Conc 31.2 g/dL (31.6-35.5); Mean Corpuscular Hemoglobin 26.2 pg (28.0-33.3); Mean Platelet Volume 9.3 fL (9.4-12.4); Monocytes # 0.4 K/mcL (0.0-1.3); Monocytes % 9.3 %; Neutrophils # 2.9 K/mcL (1.6-8.9); Platelet Count 143 K/mcL (140-400); Red Blood Count 3.13 M/mcL (3.82-4.97); Red Cell Distribution Width 20.3 % (11.5-14.5); Segmented Neutrophils % 64.3 %
[2016-08-27 05:50] LABS: INR 2.7; Prothrombin Time 29.9 Seconds (9.4-12.1)
[2016-08-27 05:55] LABS: Calcium 9.2 mg/dL (8.6-10.8); Potassium 4.4 mEq/L (3.5-4.5)
[2016-08-27] MEDS: Insulin LISPRO 300 UNITS/3 ML VIAL SQ SCH ×2 (08:24→13:35)
[2016-08-27] MEDS: Bumetanide 1 MG TABLET PO SCH (08:24)
[2016-08-27] MEDS: Cholecalciferol (D-3) 1,000 UNIT TABLET PO SCH (08:25)
[2016-08-27] MEDS: Folic Acid 1 MG TABLET PO SCH (08:25)
[2016-08-27] MEDS: Isosorbide MONOnitrate (24 HR) 60 MG TAB.ER.24H PO SCH (08:25)
[2016-08-27] MEDS: Cyanocobalamin (B-12) 1,000 MCG TABLET PO SCH (08:25)
[2016-08-27] MEDS: *HR* Glimepiride 2 MG TABLET PO SCH (08:25)
[2016-08-27] MEDS: *HR* Digoxin 0.125 MG TABLET PO SCH (08:28)
--- NOTE | 2016-08-27 09:01 | Discharge Summary ---
Date of Encounter: 08/27/16 Time of Encounter: 08:50 - Discharge Diagnosis (1) Pneumonia Priority: Primary Status: Acute Qualifiers: Pneumonia type: due to unspecified organism Laterality: bilateral Lung location: lower lobe of lung Qualified Code(s): J18.9 - Pneumonia, unspecified organism (2) CKD (chronic kidney disease), stage III Priority: Secondary Status: Chronic (3) Diabetes mellitus Priority: Secondary Status: Chronic Qualifiers: Diabetes mellitus type: type 2 Diabetes mellitus complication status: with kidney complications Diabetes mellitus complication detail: with chronic kidney disease Diabetes mellitus intermediate accountant insulin use: with intermediate accountant use Chronic kidney disease stage: stage 3 (moderate) Qualified Code(s): E11.22 - Type 2 diabetes mellitus with diabetic chronic kidney disease; N18.3 - Chronic kidney disease, stage 3 (moderate); Z79.4 - intermediate accountant (current) use of insulin (4) Atrial fibrillation Priority: Secondary Status: Chronic Qualifiers: Atrial fibrillation type: chronic Qualified Code(s): I48.2 - Chronic atrial fibrillation (5) Anemia Priority: Secondary Status: Acute Qualifiers: Anemia type: iron deficiency Iron deficiency anemia type: unspecified iron deficiency Qualified Code(s): D50.9 - Iron deficiency anemia, unspecified (6) Hyperuricemia Priority: Secondary Status: Chronic - Discharge Medications Home Medications: Losartan [Cozaar] 100 mg PO HS 12/20/14 [History] Ergocalciferol (VITAMIN D2) [Vitamin D2 (50,000 UNIT)] 50,000 unit PO QWEEK [History] Folic Acid 1 mg PO DAILY #90 tablet 08/06/15 [Rx] Carvedilol [Coreg] 25 mg PO BID 08/18/15 [History] Simvastatin [Zocor] 10 mg PO HS 08/18/15 [History] Cyanocobalamin (B-12) [Vitamin B12] 500 mcg PO DAILY tablet 06/10/16 [Rx] Glimepiride [Amaryl] 1 mg PO DAILY #30 tablet 06/10/16 [Rx] Isosorbide MONOnitrate (24 HR) [Imdur] 120 mg PO DAILY #60 tab.er.24h 06/10/16 [ Rx] Nitroglycerin [Nitrostat] 0.4 mg SL PRN PRN #1 vial 06/10/16 [Rx] Allopurinol [Zyloprim 300 MG] 300 mg PO DAILY #30 tablet 08/10/16 [Rx] Ascorbic Acid [Vitamin C] 500 mg PO DAILY #30 tablet 08/10/16 [Rx] Bumetanide [Bumex] 1.5 mg PO DAILY #45 tablet 08/10/16 [Rx] Digoxin [Lanoxin] 0.125 mg PO DAILY #30 tablet 08/10/16 [Rx] Ferrous Sulfate 325 mg PO DAILY #30 tablet 08/10/16 [Rx] Warfarin [Coumadin] 4 mg PO 1800 tablet 08/15/16 [Rx] Allergies/Adverse Reactions: Allergies No Known Allergies Allergy (Verified 08/07/16 18:53) Date of admission: 08/15/16 21:00 Primary care physician: Shira Plummer CNP Consults: 08/16/16 01:24 Consult to Occupational Therapy [CONS] Routine Comment: Eval, Develop, and Implement P.O.C. Consult to Physical Therapy [CONS] Routine Comment: Eval, Develop, and Implement P.O.C. 08/16/16 06:13 Consult to Nephrology Social Worker [CONS] Routine Reason for SW Consult: discharge planning - Patient Status Disposition: Home, Self-Care Functional capacity at discharge: uses cane/walker Overall status at discharge: patient is progressing back to baseline - Discharge Instructions Follow Up With: Shira Plummer CNP [Advanced Practice Nurse] - 1 week - Diet and Activity Activity: ambulate only with your walker, wear oxygen at all times Diet: diabetic diet Hospital course: Ms. Beebe is a 71 year old female who was hospitalized in the acute care August 11- after presenting with dyspnea. Chest CT showed bibasilar pneumonia. She was given Rocephin, Zithromax, and lactobacillus. A viral respiratory panel was ordered but results were pending at time of discharge into swing bed. She was discharged to swing bed for ongoing IV antibiotics and therapy interventions. She continued on Rocephin and Zithromax until August 18. She remained asymptomatic when these were discontinued. Her respiratory status gradually improved but she did qualify for home oxygen again prior to discharge. She will wear it / at 2 L/m nasal cannula. Her azotemia remained stable with creatinine 1.53 on 08/24/2016. There were no new problems and on Sue 22 she was stable for discharge home. She will follow with her PCP Shira Plummer CNP within 1 week. Her DME included home nebulizer machine and hospital bed. - Time Spent with Patient Total time spent providing and/or coordinating discharge services: - Constitutional Vitals: Temp Pulse Resp BP Pulse Ox 98.1 F 66 16 120/48 95 08/27/16 06:56 08/27/16 06:56 08/27/16 06:56 08/27/16 06:56 08/27/16 06:56
--- NOTE | 2016-08-27 09:07 | Physician Discharge Referral ---
Home Health/Hosp Referral Info Transfer to: Home Health Attending Provider: Sarthak Provider in Charge Post Discharge: PCP (Shira Plummer CNP) - Diagnosis (1) Pneumonia Priority: Primary Status: Acute (2) CKD (chronic kidney disease), stage III Priority: Secondary Status: Chronic (3) Diabetes mellitus Priority: Secondary Status: Chronic (4) Atrial fibrillation Priority: Secondary Status: Chronic (5) Anemia Priority: Secondary Status: Acute (6) Hyperuricemia Priority: Secondary Status: Chronic - Respiratory Orders Oxygen / L per min (2 L/m by nasal cannula 28/11) Smoking Cessation: Smoking cessation has been advised. For more information, call the [place] Tobacco Quit Line at 8-933-DZYR-NOW. - Diet/Nutrition Diet/Nutrition Orders: No Concentrated Sweets - Activity Activity Orders: Walker - Services Needed Following services are medically necessary services: Nursing, Home Health Aide, Physical Therapy, Occupational Therapy - Transfer Medications Home Medications: Losartan [Cozaar] 100 mg PO HS 12/20/14 [History] Ergocalciferol (VITAMIN D2) [Vitamin D2 (50,000 UNIT)] 50,000 unit PO QWEEK [History] Folic Acid 1 mg PO DAILY #90 tablet 08/06/15 [Rx] Carvedilol [Coreg] 25 mg PO BID 08/18/15 [History] Simvastatin [Zocor] 10 mg PO HS 08/18/15 [History] Cyanocobalamin (B-12) [Vitamin B12] 500 mcg PO DAILY tablet 06/10/16 [Rx] Glimepiride [Amaryl] 1 mg PO DAILY #30 tablet 06/10/16 [Rx] Isosorbide MONOnitrate (24 HR) [Imdur] 120 mg PO DAILY #60 tab.er.24h 06/10/16 [ Rx] Nitroglycerin [Nitrostat] 0.4 mg SL PRN PRN #1 vial 06/10/16 [Rx] Allopurinol [Zyloprim 300 MG] 300 mg PO DAILY #30 tablet 08/10/16 [Rx] Ascorbic Acid [Vitamin C] 500 mg PO DAILY #30 tablet 08/10/16 [Rx] Bumetanide [Bumex] 1.5 mg PO DAILY #45 tablet 08/10/16 [Rx] Digoxin [Lanoxin] 0.125 mg PO DAILY #30 tablet 08/10/16 [Rx] Ferrous Sulfate 325 mg PO DAILY #30 tablet 08/10/16 [Rx] Warfarin [Coumadin] 4 mg PO 1800 tablet 08/15/16 [Rx] Allergies/Adverse Reactions: Allergies No Known Allergies Allergy (Verified 08/07/16 18:53) Certification: Further, I certify that my clinical findings support that this patient is homebound (i.e. absences from home require considerable and taxing effort and are for medical reasons or mandaen services or infrequently or short duration when for other reasons) because: Homebound Reason: Leaving home requires considerable and taxing effort due to condition (COPD with oxygen dependency, chronic kidney disease, weakness) Attestation: My signature below is to certify that this patient is under my care and that I, or nurse practitioner, or a physician's technician assistant working with me, has a face-to -face encounter with this patient.
[2016-08-27 11:55] VITALS: BP 118/61
== END 2016-08-27 15:05 | disposition home or self-care (01) | DRG 194 ==
LOC: INPPIK 21:00
PROVIDERS: ADMIT Internal Medicine; ATTEND Internal Medicine